=== PATIENT | female | born 1955 | race Caucasian/White ===

== ENCOUNTER → 2016-09-13 | Outpatient (CLI) | payer MEDICARE ==
[~2016-09-13] MED LIST: AMLO10 PO; AMLO5TAB2 PO; ATOR20TA PO; ATOR20TA15 PO; CLOP75TA PO; GABA100C4 PO; HYDR-3533 PO; METO25 PO; NOVONP2 SQ; PRIN20TA2 PO; SERT-132 PO; VITA100018 PO; WARF5TAB PO; ZOLO50TA PO
[2016-09-13 09:45] LABS: HEMATOCRIT 34.7 % (35.0-46.0); MEAN CELL VOLUME 90.8 FL (80.0-100.0); MEAN CORPUSCULAR HEMOGLOBIN 29.9 PG (27.0-34.0); MEAN CORPUSCULAR HGB CONC 32.9 % (32.0-36.0); PLATELET COUNT 140 TH/MM3 (150-450); RED BLOOD COUNT 3.82 MIL/MM3 (4.00-5.30); RED CELL DISTRIBUTION WIDTH 13.3 % (11.6-17.2); REVIEW FLAG FINAL; WHITE BLOOD COUNT 9.8 TH/MM3 (4.0-11.0)
[2016-09-13 09:48] LABS: PROTHROMBIN TIME - PATIENT 10.6 SEC (9.8-11.6)
[2016-09-13 10:13] LABS: ANION GAP 10 MEQ/L (5-15); AST (GOT) 15 U/L (15-37); BICARBONATE 19.4 MEQ/L (21.0-32.0); BLOOD UREA NITROGEN 36 MG/DL (7-18); CHLORIDE 108 MEQ/L (98-107); GLOMERULAR FILTRATION RATE 10 ML/MIN (>89); GLUCOSE,FASTING 230 MG/DL (74-99); POTASSIUM 5.1 MEQ/L (3.5-5.1); SODIUM (NA) 137 MEQ/L (136-145)
[2016-09-13 10:15] LABS: ALKALINE PHOSPHATASE 78 U/L (45-117); ALT (GPT) 22 U/L (10-53); TOTAL BILIRUBIN ADULT 0.5 MG/DL (0.2-1.0)
--- NOTE | 2016-09-13 10:51 | RADRPT ---
EXAM DATE/TIME: 09/13/2016 10:29 [place] COMPARISON: CHEST PA & LAT, February 14, 2013, 16:06. INDICATIONS : Evaluate for pneumonia, pneumothorax, or communicable disease. Pre op for fistula repair. MEDICAL HISTORY : Hypertension. Chronic obstructive pulmonary disease. Renal failure, chronic. SURGICAL HISTORY : Coronary artery stent. Heart monitor. ENCOUNTER: Initial ACUITY: 1 day PAIN SCORE: 0/10 LOCATION: Bilateral chest FINDINGS: PA and lateral views of the chest demonstrate the lungs to be symmetrically aerated without evidence of mass, infiltrate or effusion. The cardiomediastinal contours are unremarkable. Osseous structure s are intact. Right sided dialysis catheter is noted, distal tips overlying the expected location of the right atrium CONCLUSION: Clear lungs. Melvin Curtis MD on September 13, 2016 at 10:48 Board Certified Radiologist. This report was verified electronically.
--- NOTE | 2016-09-13 11:40 | EKG ---
Date Performed: 09/13/2016 Time Performed: 09:35:12 PTAGE: 61 years EKG: Sinus rhythm NONSPECIFIC T-WAVE ABNORMALITY BORDERLINE ECG NO PREVIOUS TRACING DOCTOR: Cezar Cantrell Interpretating Date/Time 09/13/2016 11:39:15
== END ==
LOC: CPRE 09:06
PROVIDERS: ATTEND Surgery
DX: Z01.810 Encounter for preprocedural cardiovascular examination (principal); Z01.811 Encounter for preprocedural respiratory examination; Z01.812 Encounter for preprocedural laboratory examination; N18.6 End stage renal disease; R94.31 Abnormal electrocardiogram [ECG] [EKG]
CPT/HCPCS: 36415; 71020; 80053; 85027; 85610; 93005

== ENCOUNTER → 2016-09-14 | Outpatient (CLI) | payer MEDICARE ==
[~2016-09-14] MED LIST changes: -AMLO10 PO; -ATOR20TA PO; -METO25 PO; -PRIN20TA2 PO; -WARF5TAB PO; -ZOLO50TA PO
== END ==
LOC: CLAB 15:59
PROVIDERS: ATTEND Internal Medicine Nephrology
DX: N18.6 End stage renal disease (principal)
CPT/HCPCS: 36415; 87340

== ENCOUNTER → 2016-09-20 | Day surgery (SDC) | payer MEDICARE ==
[~2016-09-20] VITALS: Ht 165.1 cm; Wt 74.9 kg
[~2016-09-20] MED LIST changes: +BUPIVACAINE/EPINEPHRINE 0.5% PF 30 ML VIAL ONE; +DEXAMETHASONE SOD PHOS 4 MG/ML VIAL ONE; +DO NOT ADM ANY ANTICOAGULANT DRUGS PRN; +FAMOTIDINE 20 MG/2 ML VIAL ONE; +HEPARIN SODIUM - IV 10,000 UNITS/10 ML VIAL ONE; +MIDAZOLAM HCL 2 MG/2 ML VIAL ONE; +ONDANSETRON HCL 4 MG/2 ML VIAL IV PUSH ONE; +PROPOFOL 200 MG/20 ML AMP IV ONE; +PROTAMINE SULFATE 50 MG/5 ML VIAL IV ONE; +SODIUM CHLOR 0.9% 250 ML INJ 250 ML IV ONE; +VANCOMYCIN HCL 1000 MG VIAL ONE; +ePHEDrine/NS 25 MG/5 ML SYR IV ONE
--- NOTE | 2016-09-20 06:43 | PD.VS.PN ---
Pre-operative Note Pre-operative diagnosis: ESRD, need for HD access Planned procedure: RIGHT brachiobasilic AVF Interval History: Pt has started on HD recently and going well. No interval change in history that would preclude OR. Specifically, no F/C/N/V. Labs: K 5.1 Hct 35 plt 140 INR 1.0 Blood: none needed Orders: NPO Vanc 1g IV OCTOR (ESRD) Post-operative destination: PACU (outpatient) Operative site marked: Yes Consent: Informed consent has been obtained from Naomi Babin. I have explained the procedure in detail and discussed the risks, benefits, and potential complications. All questions have been answered. Patient contact information: friend [phone] Garret Chung MD Sep 20, 2016 06:43
[2016-09-20 07:16] VITALS: BP 185/85; PULSE 69; RESP 18; TEMP 98.7; O2SAT 96
--- NOTE | 2016-09-20 09:36 | HHI.PR ---
cc: Mahendra Arzola MD Immediate Post Op Note Procedure Date: Sep 20, 2016 Pre Op Diagnosis: ESRD, need for HD access Post Op Diagnosis: ESRD, need for HD access Surgeon: Garret Chung Swimming Pool Service Technician(s): none Procedure: R brachiobasilic AVF (1st stage) Findings: 3mm vein and 4mm artery Additional Information: good Doppler signals at wrist at conclusion of case Complications: none apparent Specimen(s) removed: none Estimated blood loss: 20mL Anesthesia: General Drains: None Fluids: 400mL IVF Patient to: PACU Patient Condition: Good Implant/Devices: SEE IMPLANT LOG (if applicable) Date/Time of Procedure: SEE SURGICAL CARE RECORD Garret Chung MD Sep 20, 2016 09:35
[2016-09-20 10:30] VITALS: BP 145/58
[2016-09-20 10:40] VITALS: PULSE 69; RESP 13; TEMP 98.2; O2SAT 94
--- NOTE | 2016-09-21 22:43 | MP ---
cc: MARILEE CHUNG MD DATE OF SURGERY 09/20/16 PREOPERATIVE DIAGNOSIS End-stage renal disease. Needs dialysis access. POSTOPERATIVE DIAGNOSIS End-stage renal disease. Needs dialysis access. PROCEDURE Right brachiocephalic arteriovenous fistula (first stage). ATTENDING SURGEON Marilee Chung MD DIE MAKER None. ANESTHESIA General. INDICATIONS Ms. Babin is a 61-year-old lady who has new onset dialysis. She has been dialyzed a couple of times. She is taken to the operating room for elective access creation. Preoperative imaging suggested she had adequate right basilic vein. DESCRIPTION OF PROCEDURE Informed consent was obtained from the patient. She was taken to the operating room and placed supine on the operating room table. An appropriate time-out was taken to identify the patient, the operative site and the planned procedure. The administration of 1 gram of vancomycin was initiated prior to the skin incision, will be discontinued after a single preoperative dose. Vancomycin was chosen because of the patient's end-stage renal disease. Everyone in the room agreed with the time-out and we proceeded. Her right arm was prepped and draped in a longitudinal incision was made at the distal upper arm, carried down through the subcutaneous tissue with electrocautery. The basilic vein and brachial vein was identified. The basilic vein branch was noted to be quite superficial but appeared to be reasonable quality. The brachial artery was identified several cm medial to this and dissected free. The distal aspect of the basilic vein was clamped with a right angle at bifurcation and marked for inpatient. It was immobilized and transected distally and the distal end was oversewn with silk suture. The patient was systemically heparinized with 3000 units of IV heparin. Proximal and distal control of the brachial artery obtained with profunda clamps. A longitudinal arteriotomy was made with an 11 blade, extended with Mathieu scissors. The vein was then immobilized and swung down to the brachial artery. The vein was spatulated at the area of the bifurcation and an arteriotomy was sewn to the vein in an end-to-side fashion using running 6-0 Prolene sutures. At the completion, the wound was flushed and noted to be hemostatic. The clamps were released. There was nice thrill on the vein and a Doppler signal in the radial and ulnar location of the wrist. The wound was irrigated, made hemostatic, infiltrated with 0.5% Marcaine with epinephrine and closed with 2-0 Polysorb, 3-0 Polysorb and 4-0 Monocryl. Sponge and needle counts were correct at the end of the case. I was present and scrubbed and performed the entire procedure. MD WADE More/BENIGNO /11:52 AM /10:16 PM TITO
== END | disposition home or self-care (01) ==
LOC: HSDC 06:03
PROVIDERS: ATTEND Surgery
DX: N18.6 End stage renal disease (principal); I12.0 Hypertensive chronic kidney disease with stage 5 chronic kidney disease or end stage renal disease; E11.9 Type 2 diabetes mellitus without complications; Z99.2 Dependence on renal dialysis; Z79.01 Long term (current) use of anticoagulants
CPT/HCPCS: 01844; 36821; 76937; 82948; J1100; J1644; J2250; J2405; J2720; J3010; J3370; J7050

== ENCOUNTER → 2016-11-27 | Outpatient (CLI) | payer MEDICARE ==
[~2016-11-27] MED LIST changes: -BUPIVACAINE/EPINEPHRINE 0.5% PF 30 ML VIAL ONE; -DEXAMETHASONE SOD PHOS 4 MG/ML VIAL ONE; -DO NOT ADM ANY ANTICOAGULANT DRUGS PRN; -FAMOTIDINE 20 MG/2 ML VIAL ONE; -HEPARIN SODIUM - IV 10,000 UNITS/10 ML VIAL ONE; -MIDAZOLAM HCL 2 MG/2 ML VIAL ONE; -ONDANSETRON HCL 4 MG/2 ML VIAL IV PUSH ONE; -PROPOFOL 200 MG/20 ML AMP IV ONE; -PROTAMINE SULFATE 50 MG/5 ML VIAL IV ONE; -SODIUM CHLOR 0.9% 250 ML INJ 250 ML IV ONE; -VANCOMYCIN HCL 1000 MG VIAL ONE; -ePHEDrine/NS 25 MG/5 ML SYR IV ONE
[2016-11-27 14:55] LABS: HEMATOCRIT 34.3 % (35.0-46.0); MEAN CELL VOLUME 94.6 FL (80.0-100.0); MEAN CORPUSCULAR HEMOGLOBIN 32.1 PG (27.0-34.0); PLATELET COUNT 162 TH/MM3 (150-450); RED BLOOD COUNT 3.63 MIL/MM3 (4.00-5.30); RED CELL DISTRIBUTION WIDTH 15.7 % (11.6-17.2); REVIEW FLAG FINAL; WHITE BLOOD COUNT 7.6 TH/MM3 (4.0-11.0)
[2016-11-27 15:15] LABS: BICARBONATE 28.1 MEQ/L (21.0-32.0); POTASSIUM 4.3 MEQ/L (3.5-5.1)
[2016-11-27 15:27] LABS: INTERNATIONAL NORMALIZED RATIO 0.9 RATIO; PROTHROMBIN TIME - PATIENT 10.4 SEC (9.8-11.6)
== END ==
LOC: CPRE 13:13
PROVIDERS: ATTEND Surgery
DX: Z01.812 Encounter for preprocedural laboratory examination (principal); Z01.811 Encounter for preprocedural respiratory examination; N18.6 End stage renal disease; Z99.2 Dependence on renal dialysis
CPT/HCPCS: 36415; 80048; 85027; 85610; 86850; 86900; 86901

== ENCOUNTER 2016-11-29 09:55 | Observation (INO) | payer MEDICARE ==
[~2016-11-29] VITALS: Ht 165.1 cm; Wt 74.6 kg
[~2016-11-29 09:55] MED LIST changes: -HYDR-3533 PO
[2016-11-29 10:07] VITALS: BP 166/68; PULSE 75; RESP 18; TEMP 98.3; O2SAT 98
[2016-11-29] MEDS ORDERED: LACTATED RINGER'S 1000 ML IV PRN (10:15)
[2016-11-29] MEDS ORDERED: INSULIN HUMAN REGULAR 1,000 UNITS/10 ML VIAL SQ PRN (10:15)
[2016-11-29] MEDS ORDERED: POVIDONE IODINE 5% (ANTISEPSIS KIT) 4 APPLICATIONS EACH NARE PRN (10:15)
[2016-11-29] MEDS ORDERED: CHLORHEXIDINE GLUCONATE 2 % 1 PACK (2 CLOTHS) TOPICAL PRN (10:15)
[2016-11-29] MEDS ORDERED: SODIUM CHLORID 0.9% 500 ML IV PRN (10:15)
[2016-11-29] MEDS ORDERED: METOPROLOL TARTRATE 25 MG TAB PO PRN (10:15)
[2016-11-29] MEDS ORDERED: ceFAZolin 2 GM PREMIX 50 ML ONE (11:05)
[2016-11-29] MEDS ORDERED: BUPIVACAINE HCL PF 0.5% 30 ML VIAL ONE (11:05)
[2016-11-29] MEDS ORDERED: HEPARIN SODIUM - IV 10,000 UNITS/10 ML VIAL ONE (11:05)
[2016-11-29] MEDS ORDERED: THROMBIN (TOPICAL) 20,000 UNIT SPRAY KIT ONE (11:05)
[2016-11-29] MEDS ORDERED: fentaNYL CITRATE 250 MCG/5 ML AMP ONE (11:43)
[2016-11-29] MEDS ORDERED: DEXAMETHASONE SOD PHOS 4 MG/ML VIAL ONE (11:45)
[2016-11-29] MEDS ORDERED: FAMOTIDINE 20 MG/2 ML VIAL ONE ×2 (11:45→11:46)
[2016-11-29] MEDS ORDERED: MIDAZOLAM HCL 2 MG/2 ML VIAL ONE (11:45)
--- NOTE | 2016-11-29 11:47 | HHI.HP ---
History of Present Illness Chief Complaint: ESRD, need for HD access History of Present Illness 61 yo female with ESRD currently getting HD TTS via R chest catheter, last HD yesterday without difficulty. Had R BB AVF 09/20 as first stage of planned 2 stage. No problems and by ultrasound and physical exam, that fistula is adequate size for transposition. Pt ready for 2nd stage. Past/Family/Social History Past Medical History CVOD with CVA and R hemiparesis. CAD DM ESRD HTN Past Surgical History CEA CABG R UE access Social History lives with roommate non smoker Family History NC Home Medications Reported Medications Insulin Human NPH Inj (Novolin N Inj)1,000 Unit/10 Ml Vial15 Units SQ DAILY # 10 ML Ref 0 09/13/16 Amlodipine 5 Mg Tab5 Mg PO BID #30 TAB Ref 0 09/13/16 Gabapentin 100 Mg Mru732 Mg PO DAILY #60 CAP Ref 0 09/13/16 Clopidogrel 75 Mg Tab75 Mg PO DAILY #30 TAB Ref 0 09/13/16 Atorvastatin 20 Mg Tab20 Mg PO HS #30 TAB Ref 0 09/13/16 Sertraline 50 Mg Tab50 Mg PO DAILY #30 TAB Ref 0 09/13/16 Cholecalciferol (Vitamin D3)1,000 Unit Tab1,000 Units PO DAILY #1 BOTTLE Ref 0 09/13/16 Coded Allergies: Percocet (Verified Adverse Reaction, Severe, HALLUCINATION, 11/29/16) Tetracycline (Verified Adverse Reaction, Severe, VOMITTING, 11/29/16) Review of Systems Respiratory: DENIES: Cough, Sputum production, Shortness of breath Cardiovascular: DENIES: Chest pain Physical Exam Vitals/I&O Date Time Temp Pulse Resp B/P Pulse Ox O2 Delivery O2 Flow Rate FiO2 11/29/16 10:07 98.3 75 18 166/68 98 Neuro: alert and in usual state of health HEENT: NC/AT Neck: no JVD Heart: reg rate, soft systolic murmur Lungs: clear bilaterally Abdomen: NT Vascular: palpable UE thrill Extremities: R UE incision healed nicely Laboratory Tests Test 11/29/16 10:30 Potassium Level 4.5 Assessment and Plan Plan Plan for 2nd stage RIGHT UE brachiobasilic AVF (transposition) Post-op admit Discharge Planning tomorrow (), POD#1 Garret Chung MD Nov 29, 2016 11:47
[2016-11-29] MEDS ORDERED: GLUCAGON 1 MG/ML VIAL OTHER PRN (12:00)
[2016-11-29] MEDS ORDERED: HYDROmorphone HCL 2 MG TAB PO PRN (12:00)
[2016-11-29] MEDS ORDERED: PROPOFOL 200 MG/20 ML AMP IV ONE (12:00)
[2016-11-29] MEDS ORDERED: DEXTROSE 50% IN WATER 50 ML VIAL(D50) IV PRN (12:00)
[2016-11-29] MEDS ORDERED: ePHEDrine/NS 25 MG/5 ML SYR IV ONE (12:00)
[2016-11-29] MEDS ORDERED: VANCOMYCIN HCL 1000 MG VIAL ONE (12:08)
[2016-11-29] MEDS ORDERED: SODIUM CHLOR 0.9% 250 ML INJ 250 ML ONE (12:08)
--- NOTE | 2016-11-29 13:59 | HHI.PR ---
Immediate Post Op Note Procedure Date: Nov 29, 2016 Pre Op Diagnosis: ESRD, need for HD access Post Op Diagnosis: ESRD, need for HD access Surgeon: Garret Chung Evaporator Helper(s): none Procedure: R brachiobasilic transposition (2nd stage) Findings: 5-6mm vein Additional Information: Good thrill after AVF creation + signal in radial and ulnar arteries Complications: none apparent Specimen(s) removed: none Estimated blood loss: 50mL Anesthesia: General Drains: ESTEFANÍA Fluids: 200mL IVF Patient to: PACU Patient Condition: Good Date/Time of Procedure: SEE SURGICAL CARE RECORD Garret Chung MD Nov 29, 2016 13:59
[2016-11-29] MEDS ORDERED: *LABETALOL HCL 100 MG/20 ML VIAL PERIprocedural Use ONLY ONE (14:19)
[2016-11-29] MEDS ORDERED: DO NOT ADM ANY ANTICOAGULANT DRUGS PRN (15:00)
[2016-11-29] MEDS ORDERED: *morphine SULFATE 8 MG/ML PERIprocedure ONLY ONE (15:00)
[2016-11-29 16:52] LABS: BICARBONATE 26.2 MEQ/L (21.0-32.0); POTASSIUM 4.6 MEQ/L (3.5-5.1)
[2016-11-29 17:00] VITALS: BP 195/75; PULSE 73; RESP 17; TEMP 96.5; O2SAT 97
[2016-11-29] MEDS ORDERED: Hemodialysis Vas Acc Cath PRN Heparin 1000 unit/ml Flush IV FLUSH (17:00)
[2016-11-29] MEDS ORDERED: Hemodialysis Vas Access Cath PRN NS Lock Flush IV FLUSH (17:00)
[2016-11-29] MEDS ORDERED: SODIUM CHLOR 0.9% 1000 ML INJ 1,000 ML IV PRN ×3 (17:03)
[2016-11-29] MEDS: MORPHINE SULFATE 4 MG/ML INJ IV PRN (17:03)
--- NOTE | 2016-11-29 17:10 | PD.CONS ---
HPI Service Nephrology Consult Requested By Dr. Chung Reason for Consult ESRD Primary Care Physician Karen Perez, History of Present Illness Patient is a 61-year-old female with history of diabetes, hypertension, end- stage renal disease, coronary artery disease who has been admitted to for second stage procedure for a fistula in the right arm, she underwent the procedure and tolerated it well, she goes on Sunday and Sunday and follows with Dr. Goldman. Review of Systems Constitutional: COMPLAINS OF: Fatigue Musculoskeletal: COMPLAINS OF: Joint pain, Muscle aches, Stiffness Past Family Social History Allergies: Coded Allergies: Percocet (Verified Adverse Reaction, Severe, HALLUCINATION, 11/29/16) Tetracycline (Verified Adverse Reaction, Severe, VOMITTING, 11/29/16) Past Medical History End-stage renal disease Diabetes Hypertension Peripheral vascular disease History of CVA by down weakness Hyperlipidemia Past Surgical History CEA Right upper arm AV fistula CABG Reported Medications Reported Meds & Active Scripts Active Reported Novolin N Inj (Insulin Human NPH) 1,000 Unit/10 Ml Vial 15 Units SQ DAILY Amlodipine (Amlodipine Besylate) 5 Mg Tab 5 Mg PO BID Gabapentin 100 Mg Cap 200 Mg PO DAILY Clopidogrel (Clopidogrel Bisulfate) 75 Mg Tab 75 Mg PO DAILY Atorvastatin (Atorvastatin Calcium) 20 Mg Tab 20 Mg PO HS Sertraline (Sertraline HCl) 50 Mg Tab 50 Mg PO DAILY Vitamin D3 (Cholecalciferol) 1,000 Unit Tab 1,000 Units PO DAILY Active Ordered Medications Current Medications Medications (Trade) Dose Ordered Sig/Tomy Route Start Time Stop Time Status Last Admin Lactated Ringer's 1,000 ml @ 30 mls/hr Q24H PRN IV 11/29/16 10:15 12/02/16 10:14 (NS 500 ml Inj) 500 ml @ 30 mls/hr [id number] PRN IV 11/29/16 10:15 12/02/16 10:14 11/29/16 10:40 (Pepcid) 20 mg BID PO 11/29/16 21:00 (Dilaudid) 1 mg Q4H PRN PO 11/29/16 12:00 (Morphine Inj) 2 mg Q1H PRN IV 11/29/16 12:00 11/29/16 17:03 (Heparin Inj) 5,000 units Q8H SQ 11/30/16 13:30 (Norvasc) 5 mg BID PO 11/29/16 21:00 (Lipitor) 20 mg HS PO 11/29/16 21:00 (Vitamin D3) 1,000 units DAILY PO 11/30/16 09:00 (Plavix) 75 mg DAILY PO 11/30/16 09:00 (Neurontin) 200 mg DAILY PO 11/30/16 09:00 (NovoLIN N INJ) 15 units DAILY SQ 11/30/16 09:00 (Zoloft) 50 mg DAILY PO 11/30/16 09:00 (D50w (Vial) Inj) 50 ml UNSCH PRN IV 11/29/16 12:00 (Glucagon Inj) 1 mg UNSCH PRN OTHER 11/29/16 12:00 Miscellaneous Information ALL NURSING DEPARTME... UNSCH PRN .XX 11/29/16 15:00 11/30/16 14:59 (NS Flush) 5 ml UNSCH PRN IV FLUSH 11/29/16 17:00 (Heparin Inj) 2,000 units UNSCH PRN IV FLUSH 11/29/16 17:00 Family History Noncontributory Social History Denies smoking or alcohol use Physical Exam Vital Signs Vital Signs Date Time Temp Pulse Resp B/P Pulse Ox O2 Delivery O2 Flow Rate FiO2 11/29/16 10:07 98.3 75 18 166/68 98 Physical Exam GENERAL: Well-nourished, well-developed patient. SKIN: Warm and dry. HEAD: Normocephalic. EYES: No scleral icterus. No injection or drainage. NECK: Supple, trachea midline. No JVD or lymphadenopathy. CARDIOVASCULAR: Regular rate and rhythm without murmurs, gallops, or rubs. Rt side PermCath RESPIRATORY: Breath sounds equal bilaterally. No accessory muscle use. GASTROINTESTINAL: Abdomen soft, non-tender, nondistended. EXTREMITIES: No cyanosis, or edema. Right arm dressed NEUROLOGICAL: Awake, alert, and oriented x 3. Non-focal. Laboratory Laboratory Tests Test 11/29/16 11/29/16 10:30 16:00 Potassium Level 4.5 4.6 Sodium Level 138 Chloride Level 104 Carbon Dioxide Level 26.2 Anion Gap 8 Blood Urea Nitrogen 18 Creatinine 3.78 Estimat Glomerular Filtration 12 Rate Random Glucose 229 Calcium Level 8.3 Result Diagram: 11/29/16 1600 Assessment and Plan Problem List: (1) ESRD (end stage renal disease) on dialysis Plan: Patient is on hemodialysis continue with Sunday, and Sunday schedule. She has a PermCath in place Continue outpatient regimen (2) Hypertension Plan: Continue to monitor blood pressure (3) Diabetes Plan: Monitor blood glucose (4) CAD (coronary artery disease) Plan: Monitor Problem Qualifiers (1) Hypertension: Qualified Code: I10 - Essential hypertension (2) Diabetes: Emili Adan MD Nov 29, 2016 17:10
[2016-11-29] MEDS ORDERED: ALBUMIN HUMAN 25% 25 GM/100 ML BAGP IV PRN (17:15)
[2016-11-29] MEDS ORDERED: ACETAMINOPHEN 325 MG TAB PO PRN (17:15)
[2016-11-29] MEDS ORDERED: GENTAMICIN SULFATE (DIALYSIS USE ONLY) 20 MG/2 ML VIAL IV PRN (17:15)
[2016-11-29] MEDS ORDERED: SODIUM CHLORIDE 0.9% FLUSH 10 ML FLUSH IV FLUSH PRN (17:15)
[2016-11-29] MEDS ORDERED: cloNIDine HCL 0.1 MG TAB PO PRN (17:15)
[2016-11-29] MEDS ORDERED: HEPARIN SODIUM - IV 10,000 UNITS/10 ML VIAL IVF PRN (17:15)
[2016-11-29] MEDS ORDERED: HEPARIN SODIUM - IV 10,000 UNITS/10 ML VIAL PRN (17:15)
[2016-11-29] MEDS ORDERED: ONDANSETRON HCL 4 MG/2 ML VIAL IV PRN (17:15)
[2016-11-29] MEDS ORDERED: EPOETIN ALFA 10,000 UNITS/ML VIAL IV PRN (17:15)
[2016-11-29] MEDS ORDERED: GELATIN 12 MM/7 MM FOAM TOP PRN (17:15)
[2016-11-29] MEDS ORDERED: diphenhydrAMINE HCL 25 MG CAP PO PRN (17:15)
[2016-11-29] MEDS ORDERED: NITROGLYCERIN 0.4 MG SL 25 TABS/BTL SL PRN (17:15)
[2016-11-29] MEDS ORDERED: MANNITOL 12.5 GM/50 ML VIAL IV PRN (17:15)
[2016-11-29] MEDS: INSULIN ASPART SUPPLEMENTAL SCALE SQ SCH ×2 (18:29→21:00)
[2016-11-29 20:00] VITALS: BP_SYST 116; BP_SYST 129; BP_DIAS 75; BP_DIAS 78; PULSE 84; RESP 19; TEMP 96.3; O2SAT 95; O2SAT 96
[2016-11-29] MEDS ORDERED: FAMOTIDINE 20 MG TAB PO SCH (21:00)
[2016-11-29] MEDS ORDERED: ATORVASTATIN 20 MG TAB PO SCH (21:00)
[2016-11-29] MEDS: amLODIPine BESYLATE 5 MG TAB PO SCH (21:57)
[2016-11-29 22:00] VITALS: PULSE 72
[2016-11-30] VITALS: BP 147/58; PULSE 78; RESP 16; TEMP 96.6; O2SAT 95
[2016-11-30 04:00] VITALS: BP 169/72; PULSE 74; RESP 16; TEMP 96.3; O2SAT 97
[2016-11-30] MEDS: MORPHINE SULFATE 4 MG/ML INJ IV PRN (05:19)
[2016-11-30] MEDS: INSULIN ASPART SUPPLEMENTAL SCALE SQ SCH ×3 (06:14→14:59)
[2016-11-30 06:38] LABS: HEMATOCRIT 30.9 % (35.0-46.0); MEAN CELL VOLUME 95.6 FL (80.0-100.0); MEAN CORPUSCULAR HEMOGLOBIN 32.3 PG (27.0-34.0); MEAN CORPUSCULAR HGB CONC 33.7 % (32.0-36.0); PLATELET COUNT 141 TH/MM3 (150-450); RED BLOOD COUNT 3.23 MIL/MM3 (4.00-5.30); RED CELL DISTRIBUTION WIDTH 15.7 % (11.6-17.2); REVIEW FLAG FINAL; WHITE BLOOD COUNT 12.2 TH/MM3 (4.0-11.0)
[2016-11-30 07:17] LABS: BICARBONATE 25.3 MEQ/L (21.0-32.0); POTASSIUM 5.7 MEQ/L (3.5-5.1)
[2016-11-30 08:00] VITALS: BP 174/75; PULSE 75; RESP 18; TEMP 98.4; O2SAT 96
[2016-11-30] MEDS ORDERED: INSULIN HUMAN NPH 1,000 UNITS/10 ML VIAL SQ SCH (09:00)
[2016-11-30] MEDS ORDERED: GABAPENTIN 100 MG CAP PO SCH (09:00)
[2016-11-30] MEDS ORDERED: CLOPIDOGREL 75 MG TAB PO SCH (09:00)
[2016-11-30] MEDS ORDERED: SERTRALINE HCL 50 MG TAB PO SCH (09:00)
[2016-11-30] MEDS ORDERED: CHOLECALCIFEROL (VIT D3) 1000 UNIT TAB PO SCH (09:00)
--- NOTE | 2016-11-30 09:06 | PD.VS.PN ---
Subjective POD #: 1 Procedure(s): R brachiobasilic transposition (2nd stage) Subjective/Hospital Course Pt in bed w/o complaints ESTEFANÍA drain removed at the bedside w/o difficulty Motor intact Pt is with no new deficits Objective Vitals/I&O Date Time Temp Pulse Resp B/P Pulse Ox O2 Delivery O2 Flow Rate FiO2 11/30/16 08:00 98.4 75 18 174/75 96 11/30/16 04:00 96.3 74 16 169/72 97 11/30/16 00:00 96.6 78 16 147/58 95 11/29/16 22:00 72 11/29/16 21:57 Nasal Cannula 2.00 11/29/16 20:00 96.3 84 19 129/78 96 11/29/16 20:00 96.3 84 19 116/75 95 11/29/16 17:00 96.5 73 17 195/75 97 11/29/16 16:25 66 14 166/69 97 Nasal Cannula 2 11/29/16 16:00 69 14 157/68 96 Nasal Cannula 2 11/29/16 15:45 65 14 154/67 97 Nasal Cannula 2 11/29/16 15:30 64 14 149/64 97 Nasal Cannula 2 11/29/16 15:15 63 14 161/70 96 Nasal Cannula 2 11/29/16 15:00 63 14 160/70 96 Nasal Cannula 2 11/29/16 14:45 62 14 171/65 97 Nasal Cannula 2 11/29/16 14:30 64 14 203/81 97 Nasal Cannula 2 11/29/16 14:10 97.6 74 14 222/91 95 Nasal Cannula 2 11/29/16 10:07 98.3 75 18 166/68 98 Exam: GENERAL: A&OX#,NAD,GCS15 SKIN: Warm and dry incision to right UE intact with surgical glue. Slight ecchymosis near the incision line MUSCULOSKELETAL: Mild edema present/ No new motor deficits Laboratory Laboratory Tests Test 11/29/16 11/29/16 11/30/16 10:30 16:00 05:52 Potassium Level 4.5 4.6 5.7 Sodium Level 138 136 Chloride Level 104 103 Carbon Dioxide Level 26.2 25.3 Anion Gap 8 8 Blood Urea Nitrogen 18 26 Creatinine 3.78 4.55 Estimat Glomerular Filtration 12 10 Rate Random Glucose 229 197 Calcium Level 8.3 8.5 White Blood Count 12.2 Red Blood Count 3.23 Hemoglobin 10.4 Hematocrit 30.9 Mean Corpuscular Volume 95.6 Mean Corpuscular Hemoglobin 32.3 Mean Corpuscular Hemoglobin 33.7 Concent Red Cell Distribution Width 15.7 Platelet Count 141 Mean Platelet Volume 10.1 Assessment and Plan Assessment: (1) ESRD (end stage renal disease) on dialysis Status: Acute Plan Plan S/P 2nd stage RIGHT UE brachiobasilic AVF (transposition) Pt doing well OK for D/C post HD Pt will F/U in our OPC in 2W Ivelisse FLOOD [facility] [phone] Discharge Planning Today post HD Ivelisse Arrington Nov 30, 2016 09:05
[2016-11-30] MEDS ORDERED: HYDR-3533 PO (09:09)
--- NOTE | 2016-11-30 09:18 | PD.VS.DC ---
Discharge Summary Admission Date: Nov 29, 2016 at 11:50 Discharge Date: Nov 30, 2016 Admission Diagnosis: (1) ESRD (end stage renal disease) on dialysis Discharge Diagnosis: (1) ESRD (end stage renal disease) on dialysis Status: Acute Brief History from admission 61 yo female with ESRD currently getting HD TTS via R chest catheter, last HD yesterday without difficulty. Had R BB AVF 09/20 as first stage of planned 2 stage. No problems and by ultrasound and physical exam, that fistula is adequate size for transposition. Pt ready for 2nd stage. Procedure(s): R brachiobasilic transposition (2nd stage) Significant Findings GENERAL: A&OX#,NAD,GCS15 SKIN: Warm and dry incision to right UE intact with surgical glue. Slight ecchymosis near the incision line MUSCULOSKELETAL: Mild edema present/ No new motor deficits Laboratory Tests Test 11/29/16 11/30/16 16:00 05:52 Creatinine 3.78 MG/DL 4.55 MG/DL (0.50-1.00) (0.50-1.00) Estimat Glomerular Filtration 12 ML/MIN (>89) 10 ML/MIN (>89) Rate Random Glucose 229 MG/DL 197 MG/DL (74-106) (74-106) Calcium Level 8.3 MG/DL (8.5-10.1) White Blood Count 12.2 TH/MM3 (4.0-11.0) Red Blood Count 3.23 MIL/MM3 (4.00-5.30) Hemoglobin 10.4 GM/DL (11.6-15.3) Hematocrit 30.9 % (35.0-46.0) Platelet Count 141 TH/MM3 (150-450) Potassium Level 5.7 MEQ/L (3.5-5.1) Blood Urea Nitrogen 26 MG/DL (7-18) Hospital Course: 61 yo female with ESRD currently getting HD TTS via R chest catheter S/P R BB AVF 09/20 S/P 2nd stage on 11/30/16 Pt w/o complications and doing well post op Pt will go to HD today before D/C Allergies Coded Allergies Type Severity Reaction Last Updated Verified Percocet Adverse Reaction Severe HALLUCINATION 11/29/16 Yes Tetracycline Adverse Reaction Severe VOMITTING 11/29/16 Yes //// 06:00 18:00 06:00 18:00 06:00 18:00 Intake Total 250 ml 480 ml Output Total 80 ml Balance 170 ml 480 ml Intake Oral 480 ml IV Total 50 ml 0 ml Other 200 ml Output Urine Total 0 ml Drainage Total 30 ml Estimated Blood Loss 50 ml # Voids 2 Laboratory Tests Test 11/29/16 11/29/16 11/30/16 10:30 16:00 05:52 Potassium Level 4.5 MEQ/L 4.6 MEQ/L 5.7 MEQ/L Sodium Level 138 MEQ/L 136 MEQ/L Chloride Level 104 MEQ/L 103 MEQ/L Carbon Dioxide Level 26.2 MEQ/L 25.3 MEQ/L Anion Gap 8 MEQ/L 8 MEQ/L Blood Urea Nitrogen 18 MG/DL 26 MG/DL Creatinine 3.78 MG/DL 4.55 MG/DL Estimat Glomerular Filtration 12 ML/MIN 10 ML/MIN Rate Random Glucose 229 MG/DL 197 MG/DL Calcium Level 8.3 MG/DL 8.5 MG/DL White Blood Count 12.2 TH/MM3 Red Blood Count 3.23 MIL/MM3 Hemoglobin 10.4 GM/DL Hematocrit 30.9 % Mean Corpuscular Volume 95.6 FL Mean Corpuscular Hemoglobin 32.3 PG Mean Corpuscular Hemoglobin 33.7 % Concent Red Cell Distribution Width 15.7 % Platelet Count 141 TH/MM3 Mean Platelet Volume 10.1 FL Procedure Category Date Status Time Lactated Ringer's MED 11/29/16 Complete 1000 Ml Inj (Lr 1000 M 10:15 Sodium Chlorid 0.9% MED 11/29/16 Complete 500 Ml Inj (Ns 500 M 10:15 Metoprolol Tartrate MED 11/29/16 In Process (Lopressor) 10:15 Povidone Iod 5% MED 11/29/16 Complete Antisepsis Kit 10:15 Chlorhexidine 2% MED 11/29/16 Complete Cloth (Chlorhexidine 10:15 Insulin Human Regular MED 11/29/16 Complete Inj (Novolin R Inj 10:15 Potassium, Serum (K) LAB 11/29/16 Complete 10:23 Heparin Inj (Heparin MED 11/29/16 Complete Inj) 11:05 Bupivacaine Pf 0.5% MED 11/29/16 Complete Inj (Marcaine Pf 0.5 11:05 Cefazolin 2 Gm Premix MED 11/29/16 Complete (Ancef 2 Gm Premix 11:05 Thrombin Top [place] MED 11/29/16 Complete (Thrombin Top [place]) 11:05 Fentanyl Inj MED 11/29/16 Complete (Fentanyl Inj) 11:43 Midazolam Inj (Versed MED 11/29/16 Complete Inj) 11:45 Dexamethasone Inj MED 11/29/16 Complete (Decadron Inj) 11:45 Famotidine Inj MED 11/29/16 Complete (Pepcid Inj) 11:45 Famotidine Inj MED 11/29/16 Complete (Pepcid Inj) 11:46 Place In Observation ADMITTING 11/29/16 Transmitted Code Status CODE 11/29/16 Transmitted 11:47 Vital Signs (Adult) BERNADETTE 11/29/16 In Process 11:47 Hub Associate / BERNADETTE 11/29/16 In Process Telemetry 11:47 Activity Oob Ad Barbara BERNADETTE 11/29/16 In Process 11:47 ^ Precautions BERNADETTE 11/29/16 In Process 11:47 Diet Heart Healthy DIET 11/29/16 Transmitted Lunch Basic Metabolic Panel LAB 11/29/16 Complete (Bmp) 16:00 Basic Metabolic Panel LAB 11/30/16 Complete (Bmp) 06:00 Cbc No Diff, Includes LAB 11/30/16 Complete Plts 06:00 Consult Nephrology CONS 11/29/16 Transmitted Famotidine (Pepcid) MED 11/29/16 In Process 21:00 Hydromorphone MED 11/29/16 In Process (Dilaudid) 12:00 Morphine Inj MED 11/29/16 In Process (Morphine Inj) 12:00 Amlodipine (Norvasc) MED 11/29/16 In Process 21:00 Atorvastatin (Lipitor) MED 11/29/16 In Process 21:00 Cholecalciferol MED 11/30/16 In Process (Vitamin D3) 09:00 Clopidogrel (Plavix) MED 11/30/16 In Process 09:00 Gabapentin (Neurontin) MED 11/30/16 In Process 09:00 Insulin Human Nph Inj MED 11/30/16 In Process (Novolin N Inj) 09:00 Sertraline (Zoloft) MED 11/30/16 In Process 09:00 Blood Glucose Goal BERNADETTE 11/29/16 In Process (Criteria) 11:50 Hypoglycemia 70 Mg/Dl BERNADETTE 11/29/16 In Process Or < 11:50 Notify : Leonid BERNADETTE 11/29/16 In Process 11:50 Dextrose 50% In Goldy MED 11/29/16 In Process (Vial) Inj (D50w (Vi 12:00 Glucagon Inj MED 11/29/16 In Process (Glucagon Inj) 12:00 Insulin Aspart MED 11/29/16 In Process Supplemtl Scale 16:00 Vancomycin Inj MED 11/29/16 Complete (Vancomycin Inj) 12:08 Sodium Chlor 0.9% 250 MED 11/29/16 Complete Ml Inj (Ns 250 Ml 12:08 (Hub Use Only)Inp Phy CONS 11/29/16 Transmitted Cons/Ref *Labetalol Inj MED 11/29/16 Complete (*Trandate Inj 14:19 Heparin Inj (Heparin MED 11/30/16 In Process Inj) 13:30 Misc Nursing MED 11/29/16 In Process Information 15:00 *Morphine Inj MED 11/29/16 Complete (*Morphine Inj 15:00 Sds Pre Op Care SDSC 11/29/16 Complete Anticoagulant Alert BERNADETTE 11/29/16 In Process ^ Sling BERNADETTE 11/29/16 In Process Resp Oxygen Marvin C RSP 11/29/16 Complete Titrat 1-4 L Sodium Chloride 0.9% MED 11/29/16 In Process Flush (Ns Flush) 17:00 Heparin Inj (Heparin MED 11/29/16 In Process Inj) 17:00 Blood Flow Rate BERNADETTE 11/29/16 In Process 17:03 Dialysate Flow Rate BERNADETTE 11/29/16 In Process 17:03 Dialyzer BERNADETTE 11/29/16 In Process 17:03 Concentrate BERNADETTE 11/29/16 In Process 17:03 Acid Concentrate BERNADETTE 11/29/16 In Process 17:03 Length Of Dialysis BERNADETTE 11/29/16 In Process 17:03 Frequency Of Dialysis BERNADETTE 11/29/16 In Process 17:03 Dialysis Obtain BERNADETTE 11/29/16 In Process 17:03 Dialysis Schedule BERNADETTE 11/29/16 In Process 17:03 Resp Oxygen Marvin C RSP 11/29/16 Complete Titrat 1-4 L Dialysis Weight BERNADETTE 11/29/16 In Process 17:03 ^ Obtain As Needed BERNADETTE 11/29/16 In Process 17:03 Sodium Chlor 0.9% MED 11/29/16 In Process 1000 Ml Inj (Ns 1000 M 17:03 Heparin Inj (Heparin MED 11/29/16 In Process Inj) 17:15 Sodium Chlor 0.9% MED 11/29/16 In Process 1000 Ml Inj (Ns 1000 M 17:03 Sodium Chlor 0.9% MED 11/29/16 In Process 1000 Ml Inj (Ns 1000 M 17:03 Mannitol Inj MED 11/29/16 In Process (Mannitol Inj) 17:15 Albumin 25% Inj MED 11/29/16 In Process (Albumin 25% Inj) 17:15 Sodium Chloride 0.9% MED 11/29/16 In Process Flush (Ns Flush) 17:15 Heparin Inj (Heparin MED 11/29/16 In Process Inj) 17:15 Gentamicin (Dialysis) MED 11/29/16 In Process Inj (Gentamicin (D 17:15 Ondansetron Inj MED 11/29/16 In Process (Zofran Inj) 17:15 Acetaminophen MED 11/29/16 In Process (Tylenol) 17:15 Diphenhydramine MED 11/29/16 In Process (Benadryl) 17:15 Nitroglycerin Sl MED 11/29/16 In Process (Nitrostat Sl) 17:15 Clonidine (Catapres) MED 11/29/16 In Process 17:15 Epoetin Paddy Inj MED 11/29/16 In Process (Epogen Inj) 17:15 Gelatin 12 Mm/7 Mm MED 11/29/16 In Process Top (Gelfoam 12 Mm/7 17:15 Class Iv Pacu Ea [address] [facility] 11/29/16 Complete MIN General/Pacu [facility] 11/29/16 Complete Post Anesthesia Oxygen [facility] 11/29/16 Complete Bedside Glucose [facility] 11/29/16 Complete Sling Cradle Arm ORTHO 11/30/16 Complete Attending Discharge DISCHARGE 11/30/16 Transmitted Order Vital Signs Date Time Temp Pulse Resp B/P Pulse Ox O2 Delivery O2 Flow Rate FiO2 11/30/16 08:00 98.4 75 18 174/75 96 11/30/16 04:00 96.3 74 16 169/72 97 11/30/16 00:00 96.6 78 16 147/58 95 11/29/16 22:00 72 11/29/16 21:57 Nasal Cannula 2.00 11/29/16 20:00 96.3 84 19 129/78 96 11/29/16 20:00 96.3 84 19 116/75 95 11/29/16 17:00 96.5 73 17 195/75 97 11/29/16 16:25 66 14 166/69 97 Nasal Cannula 2 11/29/16 16:00 69 14 157/68 96 Nasal Cannula 2 11/29/16 15:45 65 14 154/67 97 Nasal Cannula 2 11/29/16 15:30 64 14 149/64 97 Nasal Cannula 2 11/29/16 15:15 63 14 161/70 96 Nasal Cannula 2 11/29/16 15:00 63 14 160/70 96 Nasal Cannula 2 11/29/16 14:45 62 14 171/65 97 Nasal Cannula 2 11/29/16 14:30 64 14 203/81 97 Nasal Cannula 2 11/29/16 14:10 97.6 74 14 222/91 95 Nasal Cannula 2 11/29/16 10:07 98.3 75 18 166/68 98 Discharge Condition: Good Discharge Disposition: Discharge Home Discharge Instructions: Leave incision open to air Call the office to report any increase in drainage, warmth, swelling, fever or redness near incision site Do not lift anything over 8 ILB RUE F/U in our out patient clinic at scheduled appointment time Ivelisse FLOOD [facility] [phone] Any questions or concerns: Call [facility] at [facility] [phone] Ivelisse Arrington Nov 30, 2016 09:18
--- NOTE | 2016-11-30 11:13 | HHI.NPPN ---
Subjective History of Present Illness 61 year old with AVF procedure, ESRD on HD T,T,TS Objective Data Data 11/29/16 11/30/16 19:00 07:00 Intake Total 250 ml 480 ml Output Total 80 ml Balance 170 ml 480 ml Intake Oral 480 ml IV Total 50 ml 0 ml Other 200 ml Output Urine Total 0 ml Drainage Total 30 ml Estimated Blood Loss 50 ml # Voids 2 Vital Signs Date Time Temp Pulse Resp B/P Pulse Ox O2 Delivery O2 Flow Rate FiO2 11/30/16 08:00 98.4 75 18 174/75 96 11/30/16 04:00 96.3 74 16 169/72 97 11/30/16 00:00 96.6 78 16 147/58 95 11/29/16 22:00 72 11/29/16 21:57 Nasal Cannula 2.00 11/29/16 20:00 96.3 84 19 129/78 96 11/29/16 20:00 96.3 84 19 116/75 95 11/29/16 17:00 96.5 73 17 195/75 97 11/29/16 16:25 66 14 166/69 97 Nasal Cannula 2 11/29/16 16:00 69 14 157/68 96 Nasal Cannula 2 11/29/16 15:45 65 14 154/67 97 Nasal Cannula 2 11/29/16 15:30 64 14 149/64 97 Nasal Cannula 2 11/29/16 15:15 63 14 161/70 96 Nasal Cannula 2 11/29/16 15:00 63 14 160/70 96 Nasal Cannula 2 11/29/16 14:45 62 14 171/65 97 Nasal Cannula 2 11/29/16 14:30 64 14 203/81 97 Nasal Cannula 2 11/29/16 14:10 97.6 74 14 222/91 95 Nasal Cannula 2 -: 11/30/16 0552 11/30/16 0552 Physical Exam General Appearance: Well Developed, Well Nourished Neck Neck Exam: Neck Supple Pulmonary Resp Exam: Clear Bilaterally, Breath Sounds Equal Cardiology CV Exam: Regular, Normal Sinus Rhythm Gastrointestinal/Abdomen GI Exam: Soft, Non-Tender, Bowel Sounds Present Extremeties Extremities Exam: Trace Edema Neurologic Neuro Exam: Alert Assessment/Plan Problem List: (1) ESRD (end stage renal disease) on dialysis Plan: Patient is on hemodialysis continue with Sunday, and Sunday schedule. She has a PermCath in place seen during hemodialysis 2K, UF 3 L tolerating it well change diet to diabetic. (2) Hypertension Plan: Continue to monitor blood pressure (3) Diabetes Plan: Monitor blood glucose (4) CAD (coronary artery disease) Plan: Monitor Problem Qualifiers (1) Hypertension: Qualified Code: I10 - Essential hypertension (2) Diabetes: Emili Adan MD Nov 30, 2016 11:13
[2016-11-30] MEDS ORDERED: PILL SPLITTER OTHER PRN (11:45)
[2016-11-30] MEDS ORDERED: HEPARIN SODIUM - SQ 10,000 UNITS/ML VIAL SQ SCH (13:30)
[2016-11-30 13:40] VITALS: BP 168/60; PULSE 84; RESP 17; TEMP 97.5; O2SAT 93
[2016-11-30] MEDS: amLODIPine BESYLATE 5 MG TAB PO SCH (14:49)
[2016-11-30] MEDS ORDERED: FAMOTIDINE 20 MG TAB PO SCH (21:00)
--- NOTE | 2016-12-01 08:32 | MP ---
cc: MARILEE CHUNG MD DATE OF SURGERY: 11/29/2016 PREOPERATIVE DIAGNOSIS End-stage renal disease, needs dialysis access. POSTOPERATIVE DIAGNOSIS End-stage renal disease, needs dialysis access. PROCEDURE Right brachiobasilic transposition (second stage). ATTENDING SURGEON Marilee Chung ANESTHESIA General. INDICATION Ms. Babin is a 61-year-old lady with end-stage renal disease. About 2-1/2 months ago I did a right brachiobasilic arteriovenous fistula as the first stage of a planned two-stage procedure. She is taken to the operating room for this second stage as clinically and radiographically it is mature. DESCRIPTION OF PROCEDURE Informed consent was obtained from the patient. She was taken to the operating room and placed supine on the operating table and an appropriate timeout was taken to ensure the patient's identity, operative site and planned procedure. One gram of vancomycin was initiated prior to the skin incision and will be discontinued after a single preoperative dose. Vancomycin was chosen because of the patient's end-stage renal disease. Everyone in the room agreed with the timeout and we proceeded. Her right arm was prepped and draped. An incision was made along the course of the medial upper arm and carried down to the subcutaneous tissue with electrocautery. The fistula was identified. It was noted to be 5-7 mm throughout with a nice thrill. It was dissected free from the antecubital up to the axilla and the side branches were ligated with 3-0 silk. The fistula and then marked for orientation, clamped distally and transected. The distal end was oversewn with 4-0 Prolene. A curved tunneler was then used to create a tunnel along the anterior aspect of the arm and the fistula was passed through taking caution not to twist it. The brachial artery was identified on the distal aspect of the upper arm and dissected several centimeters. The patient was systemically heparinized with 3000 inches of IV heparin. Proximal and distal control of the brachial artery was obtained with profunda clamps and a longitudinal arteriotomy was made with an 11 blade and extended with Mathieu scissors. The vein was spatulated and sewn end-to-side with running 6-0 Prolene suture. At the completion it was flushed and noted to be hemostatic. The clamps were released. There was a nice thrill in the fistula, Doppler signal in the radial and ulnar location in the wrist. The heparin was reversed with protamine. The limb was made hemostatic. A 10 flat ESTEFANÍA drain was placed through a separate stab wound and secured to the skin with a 2-0 nylon. The wound was then irrigated, made hemostatic and closed with 2-0 Polysorb, 3-0 Polysorb and 4-0 Monocryl. The sponge and needle counts were correct at the end of the case. I was present and scrubbed and performed the entire procedure. MD WADE More/KATHRINE /2:06 PM /8:20 AM
== END 2016-11-30 15:41 | disposition home or self-care (01) ==
LOC: HCVO 09:55 → HSDI 11:50 → N07B 16:38
PROVIDERS: ADMIT Surgery; ATTEND Surgery
DX: I12.0 Hypertensive chronic kidney disease with stage 5 chronic kidney disease or end stage renal disease (principal); E11.22 Type 2 diabetes mellitus with diabetic chronic kidney disease; N18.6 End stage renal disease; R01.1 Cardiac murmur, unspecified; I25.10 Atherosclerotic heart disease of native coronary artery without angina pectoris; I73.9 Peripheral vascular disease, unspecified; E78.5 Hyperlipidemia, unspecified; I69.951 Hemiplegia and hemiparesis following unspecified cerebrovascular disease affecting right dominant side; Z95.1 Presence of aortocoronary bypass graft; Z79.899 Other long term (current) drug therapy; Z99.2 Dependence on renal dialysis
CPT/HCPCS: 01844; 36819; 80048; 82948; 84132; 85027; 96374; 96375; G0257; G0378; J0690; J1100; J1580; J1644; J1815; J2250; J2270; J3010; J3370; J7040; J7050; Q4081; 90935

== ENCOUNTER 2017-04-02 05:53 | Day surgery (SDC) | payer MEDICARE ==
[~2017-04-02] VITALS: Ht 165.1 cm; Wt 75.4 kg
[~2017-04-02 05:53] MED LIST changes: +HYDR-3533 PO
[2017-04-02] MEDS ORDERED: SODIUM CHLORIDE 0.9% FLUSH 10 ML FLUSH IV FLUSH PRN ×2 (06:15)
[2017-04-02 06:24] VITALS: BP 192/75; PULSE 73; RESP 18; TEMP 97.4; O2SAT 97
[2017-04-02 06:52] LABS: AUTOMATED NEUTROPHIL # 5.8 TH/MM3 (1.8-7.7); BASOPHIL # 0.1 TH/MM3 (0-0.2); BASOPHIL % 1.4 % (0.0-2.0); EOSINOPHIL # 0.3 TH/MM3 (0-0.4); EOSINOPHIL % 3.8 % (0.0-4.0); HEMATOCRIT 33.7 % (35.0-46.0); HEMO FLAGS DIFF FINAL; LYMPH % 19.8 % (9.0-44.0); LYMPHOCYTE # 1.7 TH/MM3 (1.0-4.8); MEAN CELL VOLUME 94.9 FL (80.0-100.0); MEAN CORPUSCULAR HEMOGLOBIN 32.1 PG (27.0-34.0); MEAN CORPUSCULAR HGB CONC 33.8 % (32.0-36.0); MONO % 6.2 % (0.0-8.0); NEUT % 68.8 % (16.0-70.0); PLATELET COUNT 147 TH/MM3 (150-450); RED BLOOD COUNT 3.56 MIL/MM3 (4.00-5.30); RED CELL DISTRIBUTION WIDTH 13.9 % (11.6-17.2); WHITE BLOOD COUNT 8.4 TH/MM3 (4.0-11.0)
[2017-04-02 07:14] LABS: POTASSIUM 4.3 MEQ/L (3.5-5.1)
[2017-04-02] MEDS ORDERED: HEPARIN-NS/PF INJ 1,000 ML ONE ×2 (09:35→10:32)
[2017-04-02] MEDS ORDERED: MIDAZOLAM HCL 2 MG/2 ML VIAL ONE ×2 (09:36→10:34)
--- NOTE | 2017-04-02 09:55 | PD.VS.PN ---
Pre-operative Note Pre-operative diagnosis: PAD, R LE rest pain Planned procedure: Aortogram w/ R LE angiogram and possible intervention Interval History: Pt has been feeling well - no F/C/N/V since I saw her in clinic. Ready for surgery Labs: Laboratory Results Test 04/02/17 06:20 Anion Gap 10 MEQ/L (5-15) Blood Urea Nitrogen 31 MG/DL (7-18) Creatinine 4.68 MG/DL (0.50-1.00) Random Glucose 169 MG/DL (74-106) Calcium Level 8.5 MG/DL (8.5-10.1) Sodium Level 133 MEQ/L (136-145) Potassium Level 4.3 MEQ/L (3.5-5.1) Chloride Level 99 MEQ/L (98-107) Carbon Dioxide Level 24.0 MEQ/L (21.0-32.0) Hematocrit 33.7 % (35.0-46.0) Hemoglobin 11.4 GM/DL (11.6-15.3) Mean Corpuscular Hemoglobin 32.1 PG (27.0-34.0) Mean Corpuscular Hemoglobin Concent 33.8 % (32.0-36.0) Mean Corpuscular Volume 94.9 FL (80.0-100.0) Mean Platelet Volume 9.1 FL (7.0-11.0) Platelet Count 147 TH/MM3 (150-450) Red Blood Count 3.56 MIL/MM3 (4.00-5.30) Red Cell Distribution Width 13.9 % (11.6-17.2) White Blood Count 8.4 TH/MM3 (4.0-11.0) Blood: none needed Imaging: will make in laborer bituminous paving Orders: NPO Post-operative destination: DOCU Operative site marked: Yes Consent: Informed consent has been obtained from Naomi Babin. I have explained the procedure in detail and discussed the risks, benefits, and potential complications. All questions have been answered. Patient contact information: friend [phone] Garret Chung MD Apr 02, 2017 09:55
[2017-04-02] MEDS ORDERED: HEPARIN SODIUM - IV 10,000 UNITS/10 ML VIAL ONE (10:20)
--- NOTE | 2017-04-02 11:04 | HHI.PR ---
Immediate Post Op Note Procedure Date: Apr 02, 2017 Pre Op Diagnosis: PAD with R LE rest pain Post Op Diagnosis: PAD with R LE rest pain Surgeon: Garret Chung Gas Plant Dispatcher(s): none Procedure: 1. Aortogram w/ R LE angiogram 2. R SFA FINANCIAL SALES CONSULTANT (5mm) 3. R peroneal FINANCIAL SALES CONSULTANT (3-3.5 tapered balloon, then 2mm distally) 4. L SUPERVISOR PLASTICS Angioseal Findings: Stenosis of R SFA and popliteal arteries - successful FINANCIAL SALES CONSULTANT Stenosis of R peroneal artery - successful FINANCIAL SALES CONSULTANT Occluded PT/AT Complications: none Specimen(s) removed: none Estimated blood loss: 10mL Anesthesia: MAC Drains: None Fluids: 100mL IVF Patient to: Other (DOCU) Patient Condition: Good Date/Time of Procedure: SEE SURGICAL CARE RECORD Garret Chung MD Apr 02, 2017 11:04
--- NOTE | 2017-04-02 11:05 | CATHPROC ---
[facility]upal HIS Report Study Information Study Number Admission Scheduled Start Study Start [id number] Apr 02 2017 5:53AM 04/02/2017 Apr 02 2017 9:42AM [place] Service Cath Endovascular Study Admit Source Facility Department Other [facility] - Pencil [facility] Physician and Clinical Staff Initial MD Chung, Garret Art Educator Teresita Atwood,RN Recorder Hardeep Hernandez,RT(R) Scrub Yordan FriedmanRT(R) Procedures Performed Procedure Location (Site) Vessel Name Abdominal Angiogram Abd Aorta (A3) Aorta Abdominal Angiogram Fem R. Com (R7) Femoral Art Abdominal Angiogram Popliteal R (R10) Popliteal Abdominal Angiogram SFA (right) Femoral Art Abdominal Angiogram Tib, Ant. (right) Popliteal Angiogram (manual) Peroneal (right) Popliteal Angiogram (manual) Popliteal R (R10) Popliteal CONSUMER LOAN MANAGER Peroneal (right) Popliteal CONSUMER LOAN MANAGER SFA (right) Femoral Art Wire insertion Fem Art (left) Femoral Art Wire insertion Fem Art (right) Femoral Art Equipment Time Pilates Instructor Description Size Mfg Part Number Used/Scraped [id number] 10:03 ANGIO-DYNAMICS OMNI FLUSH 65CM CATHETER FR 4 Used *[id number] INTRODUCER SET, 10:03 [employer]. FR 5 [id number] *[id number] Used MICROPUNCTURE, STIFFENED CXI-4.0-35-135- 10:22 COOK/YONG CATHETER, FR4 CXI SUPPORT FR 4 Used P-NS-0 *[id number] KCFW-6.0-38-70- 10:22 COOK/YONG SHEATH, FR6 RAABE 70CM FR 6 Used RB WIRE, GUIDE APPROACH CELLAR PACKER [id number] 10:22 COOK/YONG 300CM Used MICROWIRE *[id number] 10:26 DAIG/ST. NORMA MEDICAL ANGIOSEAL, FR6 VIP FR 6 Used *[id number] BALLOON, ADMIRAL EXTREME 5 X [id number] 10:25 [employer] 130CM Used 120 130CM *[id number] BALLOON, AMPHIRION DEEP 2 X [id number] 10:47 [employer] 120CM Used 80 120CM *[id number] BALLOON, AMPHIRION DEEP [id number] 10:39 [employer] 150CM Used 3.0/3.5 X 210 *[id number] 10:03 MEDLINE INDUSTRIES PACK, CCL CUSTOM * Used *[id number] 10:03 [employer] MEDICAL PRESSURE TUBING 48" 48" [id number]- Used 10:22 DESTINY MED[employer] WIRE, ORANTES 260CM .035 260CM Used *[id number] [id number] 10:22 DESTINY MEDICAL WIRE, ORANTES 260CM .035 260CM Used *[id number] 10:03 NAMIC TUBING, HIGH PRESSURE 20" 20" Used *[id number] 10:03 NYCOMED OMNIPAQUE, 300 MG, 150ML 150ML [id number] Used 10:03 NYCOMED OMNIPAQUE, 300 MG, 50ML 50ML [id number] Used [id number] 10:03 [facility] BLANKET,WARM AIR CCL * Used *[id number] 10:03 TERUMO MEDICAL SHEATH, FR4 TERUMO (10CM) FR 4 Used *[id number] WIRE, ANGLED GLIDE .035 [id number] 10:03 TERUMO MEDICAL/YONG 260CM Used 260CM *[id number] Equipment Model, Serial, Lot Number and Expiration Data Description Model Number Serial Number Lot Number Expiration Date ANGIOSEAL, FR6 VIP [id number] 01-01-2018 BALLOON, ADMIRAL EXTREME 5 X [id number] 09-02-2019 120 130CM CATHETER, FR4 CXI SUPPORT [id number] 02-14-2020 SHEATH, FR6 RAABE 70CM [id number] 06-22-2019 WIRE, GUIDE APPROACH CELLAR PACKER [id number] 06-15-2021 MICROWIRE WIRE, ORANTES 260CM .035 [id number] 03-03-2020 WIRE, ORANTES 260CM .035 [id number] 06-03-2019 History: Current Medications Medication Dosage/Unit Route Frequency Last Date/Time Taken PLAVIX NORVASC Statins (any) History: Allergies Allergy Reaction Percocet HALLUCINATION Tetracycline VOMITTING oxycodone HALLUCINATION acetaminophen HALLUCINATION doxycycline VOMITTING minocycline VOMITTING tigecycline VOMITTING History: Risk Factors Family History of Hypertension Dyslipidemia Previous [place] Previous Heart Failure Premature CAD Yes Yes Yes Yes No Prior Valve Prior PCI Prior PCIDate Prior CABG Surgery No Yes 02/23/2012 No Cerebrovascular Peripheral Artery Chronic Lung On Dialysis Diabetes Diabetes Therapy Disease Disease Disease Yes Yes Yes Yes Yes Insulin History: Risk Factors Selection Items Diabetes History: Stress Tests Stress or Imaging Studies Performed No History: Other Disease Selection Items CAD COPD HTN Renal Failure-Dialysis History: Other Current Smoker Method Quit Packs a Day Years Used Pack Years No Cigarettes 3 Years Ago 2 20 40 Labs Hgb (g/dl) Hct (%) RBC (MIL/MM3) WBC (l/cumm) Platelets (thousands) 11.60-17.00 35.00-51.00 4.00-5.90 4.00-11.00 150.00-450.00 11.4 33.7 3.5 8.4 147 Glucose (mg/dl) BUN (mg/dl) Creatinine (mg/dl) BUN:Creatinine (1:x) 74.00-106.00 7.00-18.00 0.50-1.30 10.00-20.00 169 31 4.6 6.7 Na (meq/l) K (meq/l) Cl (meq/l) CO2 (mmol/L) Ca (mg/dl) 136.00-145.00 3.50-5.10 98.00-107.00 21.00-32.00 8.50-10.10 133 4.3 99 24 8.5 CPK-MB (ng/ML) 0.50-3.60 Not Drawn Medication Medication Total Dose (Bolus/Oral) Medication Total Dosage/Unit 1% XYLOCAINE 20 mL FENTANYL 150 mcg HEPARIN 5000 units VERSED 3 mg Medications (Bolus/Oral) Medication Time Given Dosage/Unit Administered By Reason 04/02/2017 10:06:13 VERSED 1 mg Teresita Atwood AM 1 mg VERSED given in lab by Teresita Atwood, IRISH in Left Antecubital via Peripheral IV. 04/02/2017 10:06:15 FENTANYL 50 mcg Teresita Atwood AM 50 mcg FENTANYL given in lab by Teresita Atwood, RN in Left Antecubital via Peripheral IV. 04/02/2017 10:07:11 1% XYLOCAINE 20 mL Garret Chung AM 20 mL 1% XYLOCAINE given in lab by Garret Chung in Right Groin via Subcutaneous. 04/02/2017 10:21:30 HEPARIN 5000 units Teresita Atwood AM 5000 units HEPARIN given in lab by Teresita Atwood, RN in Left Antecubital via Peripheral IV. 04/02/2017 10:27:26 VERSED 1 mg Adamy, Teresita AM 1 mg VERSED given in lab by Teresita Atwood, IRISH in Left Antecubital via Peripheral IV. 04/02/2017 10:27:30 FENTANYL 50 mcg Teresita Atwood AM 50 mcg FENTANYL given in lab by Teresita Atwood RN in Left Antecubital via Peripheral IV. 04/02/2017 10:37:46 VERSED 1 mg Rai Teresita AM 1 mg VERSED given in lab by Teresita Atwood RN in Left Antecubital via Peripheral IV. 04/02/2017 10:37:49 FENTANYL 50 mcg Teresita Atwood AM 50 mcg FENTANYL given in lab by Teresita Atwood, IRISH in Left Antecubital via Peripheral IV. Medication (Drip) Medication Time Given Dosage/Unit Concentration/Unit Diluent (ml) Solution IV Solutions 04/02/2017 9:55:28 AM 0 mL (IV) 500 NaCl .9 IV Solutions given in lab by Teresita Atwood RN in Left Antecubital via Peripheral IV. Pump/Drip Joey w = 20 ml/hr using NaCl .9. Initial Case Assessment Cardiovascular HR Rhythm NIBP Chest Pain 82 Sinus 199/82 0 Edema Present Skin color Skin None Normal Warm Dry Circulatory - Right Pulses Dorsalis Pedis Femoral d 1 Scale (0,1,2,3,4,d) Circulatory - Left Pulses Dorsalis Pedis Femoral 1 1 Scale (0,1,2,3,4,d) Neurological State Oriented to time-place- Alert Moves all extremities person Respiration - General Respiration Rate SpO2 (%) O2 (lpm) (B/min) 28 96 0 Final Case Assessment Cardiovascular HR Rhythm NIBP Chest Pain 74 Sinus 142/48 0 Edema Present Skin color Skin None Normal Warm Dry Circulatory - Right Pulses Dorsalis Pedis Femoral d 1 Scale (0,1,2,3,4,d) Circulatory - Left Pulses Dorsalis Pedis Femoral 1 1 Scale (0,1,2,3,4,d) Neurological State Oriented to time-place- Alert Moves all extremities person Respiration - General Respiration Rate SpO2 (%) O2 (lpm) (B/min) 15 97 2 Chronological Log Time Study Chronological Log 9:50:20 MD arrived. 9:55:14 Patient arrived via Bed. 9:55:14 Patient Name, D.O.B, / Armband Verified By R.NAilyn 9:55:15 Consent signed by the physician and the patient and verified by the Pencil [facility] staff. 9:55:16 Pre-op and post- op instructions given; patient acknowledges understanding of instructions. 9:55:16 Verbal Stimulation=2 Physical Stimulation=2 Airway=2 Respiration=2 TOTAL=8. (0=absent, 1=li mited, 2=present) 9:55:18 Presedation assessment performed by Pencil Maker RN. 9:55:21 Patient has been NPO for More than 6Hrs. 9:55:22 Skin Breakdown- right groin redness. 9:55:24 Patient Warmer Placed on the Table. 9:55:25 Cindi Prominences Protected 9:55:25 A # 20 IV was noted in the Antecubital (left). Grade = 0 IV Solutions given in lab by Teresita Atwood, IRISH in Left Antecubital via Peripheral IV. Pump/Dr ip Flow = 20 ml/hr using 9:55:28 NaCl .9. 9:55:30 History and physical on the chart or being dictated. Vitals capture started with the following parameters, Patient=Adult, Interval=5 min, Initial Pr xmxeza=653 mmHg, 10:03:32 Deflation Rate=5 mmHg, Cuff placed on Right Arm Assessment: Initial Case, HR=82 BPM, Rhythm=Sinus, VTWH=897/82 mmhg, Chest Pain=0, Edema=None, Color=Normal, Skin = Warm, Dry Right Pulses: Joshua Ped=d, Femoral=1 10:04:04 Left Pulses: Joshua Ped=1, Femoral=1 Neurological: State=Alert, Ox3, GAUTAM Respiration: Resp=28 B/min, SpO2=96 %, O2=0 lpm 10:04:59 HR=96 bpm, MROE=239/82 mmhg, SpO2=95.0 %, Resp=25 B/min, Pain=0, Ryan=10, Ferro=2 10:05:45 Bilateral groins prepped with 2% chlorhexidine, and draped after a 3 minute waiting time. 10:06:13 1 mg VERSED given in lab by Teresita Atwood, RN in Left Antecubital via Peripheral IV. 10:06:15 50 mcg FENTANYL given in lab by Teresita Atwood RN in Left Antecubital via Peripheral IV. Time Out. Correct patient, correct procedure, correct physician, power injector loaded, with co ntrast with surgical team 10:06:51 present. Time Out Concurred by MD and individual staff in procedure. 10:07:09 Case Start 10:07:11 20 mL 1% XYLOCAINE given in lab by Garret Chung in Right Groin via Subcutaneous. 10:09:19 HR=77 bpm, HIJK=130/59 mmhg, SpO2=91.0 %, Resp=16 B/min, Pain=0, Ryan=10, Ferro=2 10:10:10 Reference ECG taken 10:12:27 Access site was Left Femoral Artery. 10:12:49 A SHEATH, FR4 TERUMO (10CM) FR 4 was advanced into the Fem Art (left) using the Percutaneou s technique. 10:14:18 HR=70 bpm, YPQE=898/55 mmhg, SpO2=91.0 %, Resp=34 B/min, Pain=0, Ryan=10, Ferro=2 A OMNI FLUSH 65CM CATHETER FR 4 was advanced over a wire. OMNIPAQUE, 300 MG, 50ML 50ML was used for 10:14:31 injections. 10:15:42 Through a OMNI FLUSH 65CM CATHETER FR 4, The Abdominal Aorta was injected with 10 cc's of c ontrast. 10:16:05 Through a OMNI FLUSH 65CM CATHETER FR 4, The Abdominal Aorta was injected with 4 cc's of co ntrast. 10:16:10 A WIRE, ANGLED GLIDE .035 260CM 260CM was inserted via Fem Art (left). 10:16:30 Through a OMNI FLUSH 65CM CATHETER FR 4, The Abdominal Aorta was injected with 4 cc's of co ntrast. 10:17:16 Through a OMNI FLUSH 65CM CATHETER FR 4, The Abdominal Aorta was injected with 4 cc's of co ntrast. 10:18:08 Through a OMNI FLUSH 65CM CATHETER FR 4, The Abdominal Aorta was injected with 4 cc's of co ntrast. 10:18:27 Through a OMNI FLUSH 65CM CATHETER FR 4, The Abdominal Aorta was injected with 4 cc's of co ntrast. 10:19:17 HR=71 bpm, HUFM=988/53 mmhg, SpO2=91.0 %, Resp=69 B/min, Pain=0, Ryan=10, Ferro=2 10:21:00 A wire was inserted via Fem Art (right). 10:21:30 5000 units HEPARIN given in lab by Teresita Atwood, IRISH in Left Antecubital via Peripheral I V. 10:21:56 Catheter was removed A SHEATH, FR6 RAABE 70CM FR 6 was exchanged in the Fem Art (left). This was necessary in order to accomodate a 10:22:00 larger catheter. A CATHETER, FR4 CXI SUPPORT FR 4 was advanced over a wire. OMNIPAQUE, 300 MG, 50ML 50ML was use d for 10:23:59 injections. 10:24:59 HR=75 bpm, RZFO=959/55 mmhg, SpO2=90.0 %, Resp=17 B/min, Pain=0, Ryan=10, Ferro=2 A BALLOON, ADMIRAL EXTREME 5 X 120 130CM 130CM was inserted over WIRE, ORANTES 260CM .035 260CM v ia the 10:25:03 SFA (right). 10:26:33 In the SFA (right) a BALLOON, ADMIRAL EXTREME 5 X 120 130CM 130CM was inflated to 8 atms fo r 180 seconds. 10:27:26 1 mg VERSED given in lab by Teresita Atwood, IRISH in Left Antecubital via Peripheral IV. 10:27:30 50 mcg FENTANYL given in lab by Teresita Atwood, IRISH in Left Antecubital via Peripheral IV. 10:30:09 HR=70 bpm, DDDN=767/56 mmhg, SpO2=87.0 %, Resp=23 B/min, Pain=0, Ryan=10, Ferro=2 10:31:42 Balloon Removed. A CATHETER, FR4 CXI SUPPORT FR 4 was advanced over a wire. OMNIPAQUE, 300 MG, 50ML 50ML was use d for 10:31:47 injections. 10:32:00 Wire removed 10:33:11 Popliteal R (R10) angiogram, manually injected. 10:33:32 A WIRE, GUIDE APPROACH CELLAR PACKER MICROWIRE 300CM was inserted via Fem Art (left). 10:35:06 HR=70 bpm, THKA=804/52 mmhg, SpO2=94.0 %, Resp=10 B/min, Pain=0, Ryan=10, Ferro=2 A BALLOON, AMPHIRION DEEP 3.0/3.5 X 210 150CM was inserted over WIRE, GUIDE APPROACH CELLAR PACKER MICROW SHARITA 10:37:01 300CM via the Peroneal (right). 10:37:46 1 mg VERSED given in lab by Teresita Atwood RN in Left Antecubital via Peripheral IV. 10:37:49 50 mcg FENTANYL given in lab by Teresita Atwood RN in Left Antecubital via Peripheral IV. 10:39:24 HR=66 bpm, WJNS=858/53 mmhg, SpO2=94.0 %, Resp=13 B/min, Pain=0, Ryan=10, Ferro=2 10:39:40 In the Peroneal (right) a BALLOON, AMPHIRION DEEP 3.0/3.5 X 210 150CM was inflated to 8 nathan s for 180 seconds. 10:44:55 HR=66 bpm, EDRS=499/43 mmhg, SpO2=93.0 %, Resp=8 B/min, Pain=0, Ryan=10, Ferro=2 10:46:03 Balloon Removed. 10:46:05 Peroneal (right) angiogram, manually injected. A BALLOON, AMPHIRION DEEP 2 X 80 120CM 120CM was inserted over WIRE, GUIDE APPROACH CELLAR PACKER MICROWI RE 10:46:34 300CM via the Peroneal (right). 10:49:18 HR=66 bpm, UMNA=932/54 mmhg, SpO2=94.0 %, Resp=9 B/min, Pain=0, Ryan=10, Ferro=2 10:49:49 In the Peroneal (right) a BALLOON, AMPHIRION DEEP 2 X 80 120CM 120CM was inflated to 7 atms for 120 seconds. 10:52:15 Balloon Removed. 10:52:25 Peroneal (right) angiogram, manually injected. 10:53:17 Wire removed 10:53:24 A WIRE, ORANTES 260CM .035 260CM was inserted via Fem Art (left). 10:54:19 HR=70 bpm, RFCX=704/48 mmhg, SpO2=94.0 %, Resp=13 B/min, Pain=0, Ryan=10, Ferro=2 10:55:11 ANGIOSEAL, FR6 VIP FR 6 placement in the Fem Art (left) 10:55:25 Case End 10:55:28 No case complications noted. 10:55:29 Cine recording checked. Assessment: Final Case, HR=74 BPM, Rhythm=Sinus, ZHPU=267/48 mmhg, Chest Pain=0, Edema=None, Color=Normal, Skin = Warm, Dry Right Pulses: Joshua Ped=d, Femoral=1 10:56:42 Left Pulses: Joshua Ped=1, Femoral=1 Neurological: State=Alert, Ox3, GAUTAM Respiration: Resp=15 B/min, SpO2=97 %, O2=2 lpm 10:57:34 Sterile dressing applied to site 10:58:05 Bedside Report will be given. 10:59:18 HR=71 bpm, ZCKJ=504/58 mmhg, SpO2=95.0 %, Resp=10 B/min, Pain=0, Ryan=10, Ferro=2 11:01:53 Vitals capture stopped. 11:03:55 [facility] - Contrast Media Used In Study Contrast Total Opened (mL) Total Used (mL) Total Wasted (mL) Omnipaque 200 75 125 End Study - Maximum Contrast Load Max Contrast Load (mL) 82.0 End Study - Radiation Exposure Fluoro Time (minutes) 11.0 End Study - Patient Disposition Complications Transferred To Interventional Outcome No Outpatient Bed successful
[2017-04-02] MEDS ORDERED: CLOPIDOGREL 75 MG TAB PO ONE (11:15)
--- NOTE | 2017-04-02 12:23 | MP ---
cc: MARILEE CHUNG DATE OF SURGERY 04/02/2017 PREOPERATIVE DIAGNOSIS Right lower extremity resting discomfort. Peripheral arterial occlusive disease. POSTOPERATIVE DIAGNOSIS Right lower extremity resting discomfort. Peripheral arterial occlusive disease. PLANNED PROCEDURE 1. Aortogram with right lower extremity angiogram. 2. Right SFA angioplasty to 5 mm. 3. Right peroneal artery angioplasty (proximally, 3 to 3.5 mm tapered balloon, distally, 2mm). ATTENDING SURGEON Marilee Chung MD RESIDENT SURGEON None. ANESTHESIA Local with sedation. INDICATIONS Ms. Babin is an elderly female who has end-stage renal disease and peripheral arterial occlusive disease. She has rest pain of her right lower extremity and a palpable femoral pulse. She is taken to the operating room for angiographic evaluation and potential treatment. There is no prior catheterization or imaging available for my review. DESCRIPTION OF PROCEDURE Informed consent was obtained. The patient was taken to the operating room and placed supine on the operating room table. Appropriate time-out was taken to insure the identity of the patient, the operative site and the planned procedure. The bilateral groins were prepped and draped and the left groin was anesthetized with 1% lidocaine. A 21-gauge micropuncture needle was used to access the left common femoral artery. This was exchanged using Seldinger technique through for a micropuncture sheath through which a 0.035 Glidewire was introduced. The micropuncture sheath was exchanged for a 4-Somali sheath and a VCF catheter was advanced over the wire into the sheath. An aortogram and pelvic arteriogram was obtained. The Glidewire was re-introduced and navigated down to the right common femoral artery and the VCF catheter was advanced over this and the right lower extremity arteriogram was obtained. The patient was systemically heparinized with 5000 units of IV heparin. A 0.035 Green wire was introduced down to the popliteal artery and the VCF catheter and 4-Somali sheath were removed and a 6-Somali, 70-cm sheath was introduced and passed down to the mid-SFA. A CSI catheter was placed over the Green and the CSI and Green were navigated past the SFA stenoses, down to the popliteal artery and the SFA stenoses were angioplastied with a 5-mm balloon. At the completion angiogram showed excellent result without any recoil or extravasation. The CSI catheter was advanced down the popliteal artery and the Green was exchanged for a ABSORPTION AND ADSORPTION ENGINEER wire. Using the ABSORPTION AND ADSORPTION ENGINEER wire, we were able to navigate past the peroneal artery stenoses, down to the distal peroneal artery and the peroneal artery was angioplastied with a 3 to 3.5 mm tapered balloon and distally with the 2-mm balloon. The completion angiogram showed excellent result without any recoil or extravasation. The wire, catheter and sheath were removed and the groin was closed with AngioSeal. There were no complications. I was present and scrubbed for the entire procedure. INTERPRETATION OF IMAGES This patient has a patent inferior renal aorta with patent lumbar arteries, common iliac arteries, hypogastric arteries and external iliac arteries. None of these have any hemodynamically significant stenoses. The right common femoral artery and profunda are patent. The SFA is patent. The mid-SFA has two areas of calcific high-grade stenoses that were successfully angioplastied. The popliteal artery is patent. The anterior tibial artery and posterior tibial arteries are occluded but the peroneal artery has several high-grade stenoses but is patent. After angioplasty with 3 to 3.5 tapered and then 2-mm distal balloon, there is excellent result without any recoil or extravasation. MD WADE More/OTTO /11:55 AM /12:04 PM TITO
== END 2017-04-02 13:27 | disposition home or self-care (01) ==
LOC: HDOC 05:53 → HDIC 05:53 → HDOC 13:27
PROVIDERS: ATTEND Surgery
DX: I73.9 Peripheral vascular disease, unspecified (principal); I10 Essential (primary) hypertension; N18.6 End stage renal disease
CPT/HCPCS: 37224; 37228; 75625; 75710; 80048; 85025; 99152; 99153; C1725; C1751; C1760; C1769; C1893; G0269; J1644; J2250; J3010

== ENCOUNTER → 2017-07-23 | Day surgery (SDC) | payer MEDICARE ==
[~2017-07-23] VITALS: Ht 165.1 cm; Wt 75.6 kg
[~2017-07-23] MED LIST changes: +*ENALAPRILAT 1.25 MG/ML VIAL PERIprocedural Use ONLY ONE; +CHLORHEXIDINE GLUCONATE 2 % 1 PACK (2 CLOTHS) TOPICAL PRN; +DO NOT ADM ANY ANTICOAGULANT DRUGS PRN; +HEPARIN SODIUM - IV 10,000 UNITS/10 ML VIAL ONE; +HEPARIN-NS/PF INJ 500 ML ONE; -HYDR-3533 PO; +INSULIN HUMAN REGULAR 1,000 UNITS/10 ML VIAL SQ PRN; +IOHEXOL 300 INJ 50 ML IV ONE; +IOHEXOL 300 MG/ML 100 ML BTL (for Rad CT) IVCONTRAST ONE; +LABETALOL HCL 100 MG/20 ML VIAL IV ONE; +LACTATED RINGER'S 1000 ML IV PRN; +LIDOCAINE HCL 1% PF 30 ML VIAL ONE; +LIDOCAINE HCL 1% PF 5 ML SYRINGE OTHER ONE; +METOPROLOL TARTRATE 25 MG TAB PO PRN; +PHENYLEPH/NS 1000 MCG/10 ML SYR IV ONE; +POVIDONE IODINE 5% (ANTISEPSIS KIT) 4 APPLICATIONS EACH NARE PRN; +PROPOFOL 200 MG/20 ML AMP IV ONE; +PROTAMINE SULFATE 50 MG/5 ML VIAL ONE; +SODIUM CHLORID 0.9% 500 ML IV PRN; +ePHEDrine/NS 25 MG/5 ML SYRINGE IV ONE
--- NOTE | 2017-07-23 12:38 | HHI.HP ---
History of Present Illness Chief Complaint: R foot rest pain History of Present Illness 62 yo female with PAD s/p R SFA and peroneal AGRICULTURAL EQUIPMENT SALESPERSON several months ago, now with recurrent rest pain and rubor. No milton tissue loss. Here for R LE angiogram and potential endovascular intervention. Past/Family/Social History Past Medical History ESRD PAD DM XOL HTN CAD Past Surgical History R UE AVF R LE angio/AGRICULTURAL EQUIPMENT SALESPERSON CABG CEA Social History nonsmoker Family History NC Home Medications Reported Medications Insulin Human NPH Inj (Novolin N Inj) 1,000 Unit/10 Ml Vial, 25 UNITS SQ HS for Blood Sugar Management, #10 ML 0 Refills 07/20/17 Insulin Human NPH Inj (Novolin N Inj) 1,000 Unit/10 Ml Vial, 35 UNITS SQ every morning for Blood Sugar Management, #10 ML 0 Refills 09/13/16 Amlodipine (Amlodipine) 5 Mg Tab, 5 MG PO BID for Blood Pressure Management, # 30 TAB 0 Refills 09/13/16 Gabapentin (Gabapentin) 100 Mg Cap, 200 MG PO DAILY, #60 CAP 0 Refills 09/13/16 Clopidogrel (Clopidogrel) 75 Mg Tab, 75 MG PO DAILY for Blood Clot Prevention, # 30 TAB 0 Refills 09/13/16 Atorvastatin (Atorvastatin) 20 Mg Tab, 20 MG PO HS for Cholesterol Management, # 30 TAB 0 Refills 09/13/16 Sertraline (Sertraline) 50 Mg Tab, 50 MG PO DAILY, #30 TAB 0 Refills 09/13/16 Cholecalciferol (Vitamin D3) 1,000 Unit Tab, 2000 UNITS PO DAILY for Nutritional Supplement, #1 BOTTLE 0 Refills 09/13/16 Coded Allergies: acetaminophen (Verified Allergy, Severe, Hallucinations, 07/20/17) tetracycline (Verified Allergy, Severe, Nausea/Vomiting, 07/20/17) doxycycline (Verified Adverse Reaction, Severe, VOMITTING, 07/20/17) minocycline (Verified Adverse Reaction, Severe, VOMITTING, 07/20/17) tigecycline (Verified Adverse Reaction, Severe, VOMITTING, 07/20/17) Review of Systems Constitutional: COMPLAINS OF: Fatigue Cardiovascular: DENIES: Chest pain Physical Exam Neuro: alert, oriented, no distress HEENT: NC/AT Neck: no JVD Heart: reg rate, no M Lungs: clear B Vascular: R LE with dependent rubor but no tissue loss pending will make in OR Caprini VTE Risk Assessment Caprini VTE Risk Assessment: No/Low Risk (score <= 1) Caprini Risk Assessment Model Point Value = 1 Point Value = 2 Point Value = 3 Point Value = 5 Age 41-60 Minor surgery BMI > 25 kg/m2 Swollen legs Varicose veins or History of unexplained or recurrent spontaneous Oral contraceptives or hormone replacement Sepsis (< 1 month) Serious lung disease, including pneumonia (< 1 month) Abnormal pulmonary function Acute myocardial infarction Congestive heart failure (< 1 month) History of inflammatory bowel disease Medical patient at bed rest Age 61-74 Arthroscopic surgery Major open surgery (> 45 min) Laparoscopic surgery (> 45 min) Malignancy Confined to bed (> 72 hours) Immobilizing plaster cast Central venous access Age >= 75 History of VTE Family history of VTE Factor V Leiden Prothrombin [id number] Lupus anticoagulant Anticardiolipin antibodies Elevated serum homocysteine Heparin-induced thrombocytopenia Other congenital or acquired thrombophilia Stroke (< 1 month) Elective arthroplasty Hip, pelvis, or leg fracture Acute spinal cord injury (< 1 month) Prophylaxis Regimen Total Risk Factor Score Risk Level Prophylaxis Regimen 0-1 Low Early ambulation 2 Moderate Order ONE of the following: *Sequential Compression Device (SCD) *Heparin 5000 units SQ BID 3-4 Higher Order ONE of the following medications: *Heparin 5000 units SQ TID *Enoxaparin/Lovenox 40 mg SQ daily (WT < 150 kg, CrCl > 30 mL/min) *Enoxaparin/Lovenox 30 mg SQ daily (WT < 150 kg, CrCl > 10-29 mL/min) *Enoxaparin/Lovenox 30 mg SQ BID (WT < 150 kg, CrCl > 30 mL/min) AND/OR *Sequential Compression Device (SCD) 5 or more Highest Order ONE of the following medications: *Heparin 5000 units SQ TID (Preferred with Epidurals) *Enoxaparin/Lovenox 40 mg SQ daily (WT < 150 kg, CrCl > 30 mL/min) *Enoxaparin/Lovenox 30 mg SQ daily (WT < 150 kg, CrCl > 10-29 mL/min) *Enoxaparin/Lovenox 30 mg SQ BID (WT < 150 kg, CrCl > 30 mL/min) AND *Sequential Compression Device (SCD) Assessment and Plan Plan R LE PAD with rest pain To OR for angio and potential endovascular intervention Discharge Planning today [phone] Garret Chung MD Jul 23, 2017 12:38
[2017-07-23 13:24] LABS: AUTOMATED NEUTROPHIL # 5.1 TH/MM3 (1.8-7.7); BASOPHIL # 0.1 TH/MM3 (0-0.2); BASOPHIL % 1.3 % (0.0-2.0); EOSINOPHIL # 0.2 TH/MM3 (0-0.4); EOSINOPHIL % 3.4 % (0.0-4.0); HEMATOCRIT 34.9 % (35.0-46.0); HEMOGLOBIN 11.8 GM/DL (11.6-15.3); LYMPH % 20.9 % (9.0-44.0); LYMPHOCYTE # 1.5 TH/MM3 (1.0-4.8); MEAN CELL VOLUME 102.2 FL (80.0-100.0); MEAN CORPUSCULAR HEMOGLOBIN 34.6 PG (27.0-34.0); MEAN CORPUSCULAR HGB CONC 33.8 % (32.0-36.0); MEAN PLATELET VOLUME 8.8 FL (7.0-11.0); MONO % 5.2 % (0.0-8.0); MONOCYTE # 0.4 TH/MM3 (0-0.9); NEUT % 69.2 % (16.0-70.0); PLATELET COUNT 156 TH/MM3 (150-450); RED BLOOD COUNT 3.42 MIL/MM3 (4.00-5.30); RED CELL DISTRIBUTION WIDTH 14.4 % (11.6-17.2); WHITE BLOOD COUNT 7.3 TH/MM3 (4.0-11.0)
[2017-07-23 13:35] LABS: PROTHROMBIN TIME - PATIENT 10.3 SEC (9.8-11.6)
[2017-07-23 13:41] LABS: BICARBONATE 23.7 MEQ/L (21.0-32.0); CALCIUM 9.1 MG/DL (8.5-10.1); CREATININE 6.13 MG/DL (0.50-1.00)
--- NOTE | 2017-07-23 14:56 | HHI.PR ---
cc: Garret Chung MD Immediate Post Op Note Procedure Date: Jul 23, 2017 Pre Op Diagnosis: PAD, R LE rest pain Post Op Diagnosis: PAD, R LE rest pain Surgeon: Garret Chung Hvac Sheet Metal Installer(s): none Procedure: R LE angiogram R SFA NUTRIENT MANAGEMENT SPECIALIST (5mm) R peroneal NUTRIENT MANAGEMENT SPECIALIST (3mm) L FIBERGLASS QUALITY TECHNICIAN Angioseal Findings: stenosis mid SFA and proximal peroneal/TPT successful NUTRIENT MANAGEMENT SPECIALIST peroneal artery runoff only Complications: none Specimen(s) removed: none Estimated blood loss: 10mL Anesthesia: LMA Drains: None Patient to: PACU Patient Condition: Good Date/Time of Procedure: SEE SURGICAL CARE RECORD Garret Chung MD Jul 23, 2017 14:56
[2017-07-23 16:55] VITALS: BP 136/54; PULSE 65; RESP 20; TEMP 98; O2SAT 98
--- NOTE | 2017-07-24 15:06 | MP ---
cc: MARILEE CHUNG MD DATE OF SURGERY 07/23/2017 PREOPERATIVE DIAGNOSIS 1. Right lower extremity rest pain. 2. Peripheral arterial occlusive disease. 3. End-stage renal disease. POSTOPERATIVE DIAGNOSIS 1. Right lower extremity rest pain. 2. Peripheral arterial occlusive disease. 3. End-stage renal disease. PROCEDURE 1. Right lower extremity angiogram. 2. Right SFA angioplasty with a 5 mm balloon. 3. Right tibioperoneal trunk and peroneal artery angioplasty with a 3 mm balloon. ATTENDING SURGEON Marilee Chung. FUR COAT SEWER SURGEON None. ANESTHESIA LMA. INDICATION Ms. Babin is a 62-year-old female who has peripheral arterial occlusive disease and end-stage renal disease. She is taken to the operating room for endovascular treatment of her right lower extremity rest pain. There is no prior catheter-based imaging available for my review since the onset of her rest pain. DESCRIPTION OF PROCEDURE Informed consent was obtained from the patient. She was taken to the operating room and placed supine on the operating table. An appropriate timeout was taken to ensure the patient's identity, operative site and planned procedure. Antibiotics were not necessary as this was clean procedure without planned implantation of any foreign object. Everyone in the room agreed with the timeout and we proceeded. Her bilateral groins were prepped and draped. The left groin was anesthetized with 1% lidocaine. A 21-gauge micropuncture needle was used to access the left common femoral artery. This was exchanged using Seldinger technique for a micropuncture sheath through which a 0.035 Glidewire was introduced. The micropuncture sheath was exchanged for a 5 Palestinian sheath. A VCF catheter was placed over the wire and through the sheath and the VCF catheter and Glidewire were used to navigate down the right lower extremity. A right extremity angiogram was obtained. The patient was systemically heparinized with 5000 units of IV heparin. A 0.035 Green wire was introduced and the VCF catheter was removed. The 5 Palestinian sheath was removed and a 6 Palestinian, 55 cm Ej sheath was introduced. A CXI catheter was advanced over the Green through the Ej and the Green was exchanged for a CARBIDE POWDER PROCESSOR wire. We tried to occlude across the tight high-grade SFA stenosis but were unsuccessful remaining in the true lumen and a small dissection was then created. The CARBIDE POWDER PROCESSOR wire was exchanged for a Glidewire and used to navigate into the true lumen down at the distal SFA. The catheter was advanced over this and the glide was exchanged for a Storq and the entire SFA was angioplastied with a 5 mm balloon. The completion angiogram showed excellent result without any recoil extravasation or flow-limiting dissection. We then advanced the catheter back down over the Storq and the Storq was exchanged for a CARBIDE POWDER PROCESSOR wire and navigated down to the distal peroneal artery. The peroneal artery was angioplastied with a 3 mm balloon. The completion angiogram showed excellent result without any recoil extravasation. The wire, catheter and sheath were removed and the groin was closed with an Angio-Seal. There were no complications. I was present and scrubbed and performed the entire procedure. INTERPRETATION OF IMAGES The patient has a patent common femoral, profunda and SFA. There was a high-grade stenosis in the proximal SFA and significant disease throughout. After angioplasty there was successful resolution of both the stenosis and the dissection. The popliteal artery is patent. The anterior tibial artery and posterior tibial artery are occluded. The peroneal artery is the only runoff in the foot and it reconstitutes the foot collaterals very poorly. The patient had high-grade stenosis of the proximal peroneal artery and tibioperoneal trunk and this was successfully angioplastied with a 3 mm balloon. MD WADE More/KATHRINE /6:37 PM /2:48 PM
== END | disposition home or self-care (01) ==
LOC: HCVO 11:55
PROVIDERS: ATTEND Surgery
DX: I70.221 Atherosclerosis of native arteries of extremities with rest pain, right leg (principal); I12.0 Hypertensive chronic kidney disease with stage 5 chronic kidney disease or end stage renal disease; N18.6 End stage renal disease; I25.10 Atherosclerotic heart disease of native coronary artery without angina pectoris; E11.51 Type 2 diabetes mellitus with diabetic peripheral angiopathy without gangrene; Z79.4 Long term (current) use of insulin; Z95.1 Presence of aortocoronary bypass graft
CPT/HCPCS: 01270; 37224; 37228; 75710; 80048; 85025; 85610; 85730; 86850; 86900; 86901; C1725; C1769; J1644; J2370; J2720; J3010; J7040; Q9967

== ENCOUNTER 2017-11-20 12:52 | Day surgery (SDC) | payer MEDICARE ==
[~2017-11-20] VITALS: Ht 165.1 cm; Wt 72.0 kg
[~2017-11-20 12:52] MED LIST changes: -*ENALAPRILAT 1.25 MG/ML VIAL PERIprocedural Use ONLY ONE; -CHLORHEXIDINE GLUCONATE 2 % 1 PACK (2 CLOTHS) TOPICAL PRN; -DO NOT ADM ANY ANTICOAGULANT DRUGS PRN; -HEPARIN SODIUM - IV 10,000 UNITS/10 ML VIAL ONE; -HEPARIN-NS/PF INJ 500 ML ONE; -INSULIN HUMAN REGULAR 1,000 UNITS/10 ML VIAL SQ PRN; -IOHEXOL 300 INJ 50 ML IV ONE; -IOHEXOL 300 MG/ML 100 ML BTL (for Rad CT) IVCONTRAST ONE; -LACTATED RINGER'S 1000 ML IV PRN; -LIDOCAINE HCL 1% PF 30 ML VIAL ONE; -METOPROLOL TARTRATE 25 MG TAB PO PRN; +ONDANSETRON HCL 4 MG/2 ML VIAL IV ONE; -PHENYLEPH/NS 1000 MCG/10 ML SYR IV ONE; -POVIDONE IODINE 5% (ANTISEPSIS KIT) 4 APPLICATIONS EACH NARE PRN; -PROTAMINE SULFATE 50 MG/5 ML VIAL ONE; -SODIUM CHLORID 0.9% 500 ML IV PRN; +ceFAZolin INJ 1,000 MG VIAL IV ONE
--- NOTE | 2017-11-20 13:41 | HHI.HP ---
History of Present Illness Chief Complaint: R LE rest pain, PAD History of Present Illness 62 yo female with ESRD and PAD s/p R LE interventions, now with recurrent rest pain. Past/Family/Social History Past Medical History ESRD HTN CVA DM XOL Past Surgical History CEA CABG ileostomy B LE interventions Social History NC Family History NC Home Medications Reported Medications Insulin Human NPH Inj (Novolin N Inj) 1,000 Unit/10 Ml Vial, 20 UNITS SQ HS for Blood Sugar Management, #10 ML 0 Refills 07/20/17 Insulin Human NPH Inj (Novolin N Inj) 1,000 Unit/10 Ml Vial, 35 UNITS SQ every morning for Blood Sugar Management, #10 ML 0 Refills 09/13/16 Amlodipine (Amlodipine) 5 Mg Tab, 5 MG PO BID for Blood Pressure Management, # 30 TAB 0 Refills 09/13/16 Gabapentin (Gabapentin) 100 Mg Cap, 200 MG PO DAILY, #60 CAP 0 Refills 09/13/16 Clopidogrel (Clopidogrel) 75 Mg Tab, 75 MG PO DAILY for Blood Clot Prevention, # 30 TAB 0 Refills 09/13/16 Atorvastatin (Atorvastatin) 20 Mg Tab, 20 MG PO HS for Cholesterol Management, # 30 TAB 0 Refills 09/13/16 Sertraline (Sertraline) 50 Mg Tab, 50 MG PO DAILY, #30 TAB 0 Refills 09/13/16 Cholecalciferol (Vitamin D3) 1,000 Unit Tab, 2000 UNITS PO DAILY for Nutritional Supplement, #1 BOTTLE 0 Refills 09/13/16 Coded Allergies: oxycodone (Verified Allergy, Severe, Hallucinations, 11/19/17) tetracycline (Verified Allergy, Severe, Nausea/Vomiting, 07/23/17) doxycycline (Verified Adverse Reaction, Severe, VOMITTING, 07/23/17) minocycline (Verified Adverse Reaction, Severe, VOMITTING, 07/23/17) tigecycline (Verified Adverse Reaction, Severe, VOMITTING, 07/23/17) Review of Systems Constitutional: DENIES: Diaphoretic episodes, Fatigue, Fever, Weight gain, Weight loss, Chills, Dizziness, Change in appetite, Night Sweats Physical Exam Neuro: alert, baseline R UE dysfunction, shuffling gait (baseline) HEENT: NC/AT Neck: no JVD Heart: reg rate, no M Lungs: clear B Vascular: nonpalpable pedal pulses pending Caprini VTE Risk Assessment Caprini VTE Risk Assessment: No/Low Risk (score <= 1) Caprini Risk Assessment Model Point Value = 1 Point Value = 2 Point Value = 3 Point Value = 5 Age 41-60 Minor surgery BMI > 25 kg/m2 Swollen legs Varicose veins or History of unexplained or recurrent spontaneous Oral contraceptives or hormone replacement Sepsis (< 1 month) Serious lung disease, including pneumonia (< 1 month) Abnormal pulmonary function Acute myocardial infarction Congestive heart failure (< 1 month) History of inflammatory bowel disease Medical patient at bed rest Age 61-74 Arthroscopic surgery Major open surgery (> 45 min) Laparoscopic surgery (> 45 min) Malignancy Confined to bed (> 72 hours) Immobilizing plaster cast Central venous access Age >= 75 History of VTE Family history of VTE Factor V Leiden Prothrombin [id number] Lupus anticoagulant Anticardiolipin antibodies Elevated serum homocysteine Heparin-induced thrombocytopenia Other congenital or acquired thrombophilia Stroke (< 1 month) Elective arthroplasty Hip, pelvis, or leg fracture Acute spinal cord injury (< 1 month) Prophylaxis Regimen Total Risk Factor Score Risk Level Prophylaxis Regimen 0-1 Low Early ambulation 2 Moderate Order ONE of the following: *Sequential Compression Device (SCD) *Heparin 5000 units SQ BID 3-4 Higher Order ONE of the following medications: *Heparin 5000 units SQ TID *Enoxaparin/Lovenox 40 mg SQ daily (WT < 150 kg, CrCl > 30 mL/min) *Enoxaparin/Lovenox 30 mg SQ daily (WT < 150 kg, CrCl > 10-29 mL/min) *Enoxaparin/Lovenox 30 mg SQ BID (WT < 150 kg, CrCl > 30 mL/min) AND/OR *Sequential Compression Device (SCD) 5 or more Highest Order ONE of the following medications: *Heparin 5000 units SQ TID (Preferred with Epidurals) *Enoxaparin/Lovenox 40 mg SQ daily (WT < 150 kg, CrCl > 30 mL/min) *Enoxaparin/Lovenox 30 mg SQ daily (WT < 150 kg, CrCl > 10-29 mL/min) *Enoxaparin/Lovenox 30 mg SQ BID (WT < 150 kg, CrCl > 30 mL/min) AND *Sequential Compression Device (SCD) Assessment and Plan Plan R LE angiogram Friend: [phone] Discharge Planning Home today. Garret Chung MD Nov 20, 2017 13:41
[2017-11-20] MEDS ORDERED: SODIUM CHLOR 0.9% 250 ML INJ 250 ML ONE (14:10)
[2017-11-20] MEDS ORDERED: CHLORHEXIDINE GLUCONATE 2 % 1 PACK (2 CLOTHS) TOPICAL PRN (14:15)
[2017-11-20] MEDS ORDERED: METOPROLOL TARTRATE 25 MG TAB PO PRN (14:15)
[2017-11-20] MEDS ORDERED: POVIDONE IODINE 5% (ANTISEPSIS KIT) 4 APPLICATIONS EACH NARE PRN (14:15)
[2017-11-20] MEDS ORDERED: SODIUM CHLORID 0.9% 500 ML IV PRN (14:15)
[2017-11-20] MEDS ORDERED: LACTATED RINGER'S 1000 ML IV PRN (14:15)
[2017-11-20] MEDS ORDERED: IOHEXOL 300 INJ 50 ML IV ONE (14:36)
[2017-11-20 14:53] LABS: AUTOMATED NEUTROPHIL # 4.8 TH/MM3 (1.8-7.7); BASOPHIL # 0.1 TH/MM3 (0-0.2); EOSINOPHIL # 0.2 TH/MM3 (0-0.4); HEMATOCRIT 31.2 % (35.0-46.0); HEMOGLOBIN 10.5 GM/DL (11.6-15.3); LYMPH % 20.8 % (9.0-44.0); LYMPHOCYTE # 1.5 TH/MM3 (1.0-4.8); MEAN CELL VOLUME 102.3 FL (80.0-100.0); MEAN CORPUSCULAR HEMOGLOBIN 34.5 PG (27.0-34.0); MEAN CORPUSCULAR HGB CONC 33.7 % (32.0-36.0); MEAN PLATELET VOLUME 9.8 FL (7.0-11.0); MONO % 6.6 % (0.0-8.0); MONOCYTE # 0.5 TH/MM3 (0-0.9); NEUT % 68.6 % (16.0-70.0); PLATELET COUNT 132 TH/MM3 (150-450); RED BLOOD COUNT 3.05 MIL/MM3 (4.00-5.30); RED CELL DISTRIBUTION WIDTH 15.1 % (11.6-17.2)
[2017-11-20] MEDS ORDERED: HEPARIN-NS/PF INJ 500 ML ONE (15:00)
[2017-11-20] MEDS ORDERED: HEPARIN SODIUM - IV 10,000 UNITS/10 ML VIAL ONE (15:00)
[2017-11-20 15:07] LABS: INTERNATIONAL NORMALIZED RATIO 1.1 RATIO; PROTHROMBIN TIME - PATIENT 10.8 SEC (9.8-11.6)
[2017-11-20 15:15] LABS: BICARBONATE 21.2 MEQ/L (21.0-32.0); CALCIUM 8.3 MG/DL (8.5-10.1); CREATININE 5.52 MG/DL (0.50-1.00)
--- NOTE | 2017-11-20 16:58 | HHI.PR ---
cc: Garret Chung MD Immediate Post Op Note Procedure Date: Nov 20, 2017 Pre Op Diagnosis: R LE rest pain, PAD Post Op Diagnosis: R LE rest pain, PAD Surgeon: Garret Chung Rotary Adjuster(s): none Procedure: 1. Aortogram w/ R LE angiogram 2. R SFA GAG WRITER/stent 3. L HVAC PROJECT MANAGER Angioseal Findings: SFA multilevel stenoses, recurrent, successful GAG WRITER/stent peroneal artery runoff Complications: none Specimen(s) removed: none Estimated blood loss: 10mL Anesthesia: General Drains: None Fluids: 50mL IVF Patient to: PACU Patient Condition: Good Implant/Devices: SEE IMPLANT LOG (if applicable) Date/Time of Procedure: SEE SURGICAL CARE RECORD Garret Chung MD Nov 20, 2017 16:58
[2017-11-20] MEDS ORDERED: CLOPIDOGREL 75 MG TAB PO ONE (17:30)
[2017-11-20] MEDS ORDERED: DO NOT ADM ANY ANTICOAGULANT DRUGS PRN (17:30)
--- NOTE | 2017-11-20 17:31 | MP ---
cc: Garret Chung MD, Robert J MD DATE OF OPERATION: 11/20/2017 PREOPERATIVE DIAGNOSIS: Right lower extremity rest pain, peripheral vascular disease. POSTOPERATIVE DIAGNOSIS: Right lower extremity rest pain, peripheral vascular disease. PROCEDURES PERFORMED: 1. Aortogram with right lower extremity angiogram: 2. Right SFA angioplasty and stent with 5 mm stents. 3. Left common femoral artery Angio-Seal. ATTENDING SURGEON: Garret Chung MD ANESTHESIA: General. INDICATIONS FOR PROCEDURE: Mrs. Babin is a 62-year-old lady with end-stage renal disease and peripheral vascular disease who has had multiple right lower extremity interventions. She had recurrent rest pain over the past several weeks and presents for endovascular evaluation and treatment. There is no prior catheter-based imaging available for my review. DESCRIPTION OF PROCEDURE: Informed consent was obtained from the patient and she was taken to the operating room and placed supine on the operating table. An appropriate timeout was taken to ensure the patient's identity, operative site and the planned procedure: The administration of antibiotics was completed prior to stent implantation and everyone in the room agreed with timeout and we proceeded. The bilateral groins were prepped and draped and a 21-gauge micropuncture needle was used to access the left common femoral artery. This was exchanged using Seldinger technique for a micropuncture sheath, through which a 0.035 Glidewire was placed and then the micropuncture sheath was exchanged for a 5-Guamanian sheath. A VCF catheter was placed over the wire and through the sheath and aortogram and pelvic arteriogram was obtained. The Glidewire was reintroduced and navigated down to the right common femoral artery and VCF catheter was advanced over this and the right lower extremity arteriogram was obtained. The patient was systemically heparinized with 5000 of IV heparin. A Glidewire was navigated down the proximal SFA and the VCF was advanced over this. The Glidewire was removed and a Green guidewire was introduced. The VCF catheter and 5-Guamanian sheath were removed and a 6-Guamanian 55 cm antral sheath was introduced. A CXI catheter was placed and then a Green was exchanged for a CITY DISTRIBUTION CLERK wire, Using the CTW and then the glide, we were able to navigate through the SFA multiple segment stenoses down to the below-knee popliteal artery and this was confirmed angiographically. The Green was introduced. The popliteal artery angioplastied with a 4 mm balloon and the entire SFA with a 5 balloon. Occlusion angiogram showed residual stenosis. This was treated with a series of 5 mm stents which were postdilated to 5 mm. Completion angiogram showed excellent result without any recoil or extravasation. The wire, catheter and sheath were removed and the groin was closed in Angio-Seal. There were no complications. I was present and scrubbed and performed the entire procedure. INTERPRETATION OF IMAGES: The patient has a patent terminal aorta, common iliac arteries, external iliac arteries and femoral artery on the right without any hemodynamically significant stenoses. The right profunda is patent. The SFA has multiple high-grade stenoses that are near occlusive with what appears to be a chronic dissection in the mid SFA. The popliteal artery is patent below the knee. The peroneal artery was the only runoff to the foot. After angioplasty, there was residual stenosis and then a stent was placed. After the stents were placed, there was no hemodynamically significant stenoses and still peroneal artery runoff to the foot. MD WADE More/ , 05:02 PM , 05:30 PM
[2017-11-20] MEDS ORDERED: *morphine SULFATE 10 MG/ML PERIprocedure ONLY ONE (18:25)
[2017-11-20 19:00] VITALS: TEMP 98.2
[2017-11-20 19:25] VITALS: BP 166/70; PULSE 63; RESP 11; O2SAT 98
[2017-11-21] MEDS ORDERED: CLOPIDOGREL 75 MG TAB PO SCH (09:00)
--- NOTE | 2017-11-21 13:58 | EKG ---
Date Performed: 11/20/2017 Time Performed: 13:49:06 PTAGE: 62 years EKG: Sinus rhythm WITH OCCASIONAL SUPRAVENTRICULAR PREMATURE COMPLEXES BORDERLINE ECG PREVIOUS TRACING : 09/13/2016 09.35 DOCTOR: Cezar Cantrell Interpretating Date/Time 11/21/2017 13:56:37
== END 2017-11-20 19:29 | disposition home or self-care (01) ==
LOC: HSDC 12:52
PROVIDERS: ATTEND Surgery
DX: I70.221 Atherosclerosis of native arteries of extremities with rest pain, right leg (principal); E11.51 Type 2 diabetes mellitus with diabetic peripheral angiopathy without gangrene; I12.0 Hypertensive chronic kidney disease with stage 5 chronic kidney disease or end stage renal disease; N18.6 End stage renal disease; Z95.1 Presence of aortocoronary bypass graft; Z86.73 Personal history of transient ischemic attack (TIA), and cerebral infarction without residual deficits
CPT/HCPCS: 01270; 36246; 37226; 75710; 80048; 85025; 85610; 93005; C1725; C1769; C1876; J0690; J1644; J2270; J2405; J3010; J7050; Q9967